=== PATIENT | male | born 1960 | race Hispanic/Latino ===

== ENCOUNTER 2019-06-08 15:19 | Inpatient (IN) | payer SELFPAY ==
[~2019-06-08] VITALS: Ht 170.2 cm; Wt 64.4 kg
[2019-06-08] MEDS ORDERED: MORPHINE SULFATE 4 MG/1ML SYG ONE ×2 (15:52→17:07)
[2019-06-08] MEDS ORDERED: ONDANSETRON HCL 4 MG/2 ML VIAL ONE (15:52)
[2019-06-08] MEDS ORDERED: SODIUM CHLORIDE 0.9% 1000ML 1,000 ML IV ONE ×2 (15:53→21:11)
[2019-06-08 16:30] LABS: BASOPHILS % (AUTO) 0.4 % (0.0-5.0); HEMATOCRIT 44.1 % (42-54); LYMPHOCYTES % (AUTO) 5.3 % (21.0-51.0); MONOCYTES % (AUTO) 3.9 % (3.0-13.0); NEUTROPHILS % (AUTO) 90.1 % (40.0-77.0); PLATELET COUNT (AUTO) 249 K/uL (130-400); RED BLOOD CELL COUNT(AUTO) 4.41 MIL/uL (4.50-6.20); RED CELL DISTRIBUTION WIDTH 12.8 % (11.0-15.5); WHITE BLOOD COUNT (AUTO) 7.7 K/uL (4.8-10.8)
[2019-06-08 16:51] LABS: ALBUMIN 4.6 g/dL (3.5-5.0); BILIRUBIN,TOTAL 0.6 mg/dL (0.2-1.0); MAGNESIUM 1.4 mg/dL (1.80-2.40); POTASSIUM 4.2 mmol/L (3.5-5.1); TOTAL PROTEIN, SERUM 8.7 g/dL (6.0-8.3)
[2019-06-08] MEDS ORDERED: ONDANSETRON HCL 4 MG/2 ML VIAL IV PRN (19:00)
[2019-06-08] MEDS ORDERED: LACTULOSE 20 GM/30 ML UDCUP PO PRN (19:00)
[2019-06-08] MEDS ORDERED: ACETAMINOPHEN 325 MG TAB PO PRN (19:00)
[2019-06-08] MEDS: FAMOTIDINE/PF 20 MG/2 ML VIAL IV SCH (21:00)
[2019-06-08] MEDS ORDERED: MAGNESIUM 2GM PREMIX 50ML 50 ML IV ONE (21:11)
[2019-06-08] MEDS ORDERED: HYDRALAZINE HCL 20 MG/ML VIAL ONE (21:11)
[2019-06-08] MEDS ORDERED: MORPHINE SULFATE 2 MG/ML 1ML SYG ONE (21:23)
[2019-06-08 23:11] VITALS: BP 150/108
[2019-06-08] MEDS ORDERED: TRAM50TA4 PO (23:28)
[2019-06-09] MEDS: HYDRALAZINE HCL 20 MG/ML VIAL IV PRN ×4 (00:01→21:08)
[2019-06-09] MEDS: MORPHINE SULFATE 2 MG/ML 1ML SYG IV PRN ×4 (00:01→13:57)
[2019-06-09 03:59] VITALS: BP 160/95
[2019-06-09 05:38] LABS: BASOPHILS % (AUTO) 0.3 % (0.0-5.0); LYMPHOCYTES % (AUTO) 14.3 % (21.0-51.0); MEAN CORPUSCULAR HEMOGLOBIN 33.9 pg (27.0-33.0); MEAN CORPUSCULAR HGB CONC 33.9 g/dL (32.0-36.0); MONOCYTES % (AUTO) 8.5 % (3.0-13.0); NEUTROPHILS % (AUTO) 76.4 % (40.0-77.0); PLATELET COUNT (AUTO) 245 K/uL (130-400); RED CELL DISTRIBUTION WIDTH 12.9 % (11.0-15.5); WHITE BLOOD COUNT (AUTO) 7.8 K/uL (4.8-10.8)
[2019-06-09 05:58] LABS: CREATININE 0.9 mg/dL (0.5-1.5); POTASSIUM 3.5 mmol/L (3.5-5.1)
[2019-06-09 07:00] VITALS: BP 163/103
[2019-06-09] MEDS: SODIUM CHLORIDE 0.9% 1000ML 1,000 ML IV SCH ×4 (07:26→18:49)
[2019-06-09] MEDS: FAMOTIDINE/PF 20 MG/2 ML VIAL IV SCH ×2 (08:57→19:33)
[2019-06-09] MEDS: ENOXAPARIN SODIUM 40 MG/0.4 ML SYRINGE SQ SCH (08:57)
[2019-06-09 11:00] VITALS: BP 153/94
[2019-06-09 16:00] VITALS: BP 165/101
[2019-06-09] MEDS: KETOROLAC TROMETHAMINE 30MG/ML IV PRN ×2 (16:39→23:08)
--- NOTE | 2019-06-09 16:54 | NUR ---
DCP CM met with pt discussed dc plans. Pt is independent prior to admission, lives at home with spouse. Denies any equipments/services. Feels safe to go back home, still works and drives, spouse able to assist with transportation and needs as necessary. DC plan to home once stable. CM to cont to follow up. Addendum: 06/09/19 at 1655 by MADI ZUNIGA LVN CM Amended: Links added.
--- NOTE | 2019-06-09 18:30 | NUR ---
fleet enema was done and patient tolerated the procedure well
[2019-06-09 19:15] VITALS: BP 182/107
[2019-06-09] MEDS: POTASSIUM CHLORIDE 10MEQ/100ML 100 ML IV PRN (19:33)
[2019-06-09] MEDS: LIDOCAINE HCL-MPF 1% 2ML VIAL IV PRN (19:33)
--- NOTE | 2019-06-09 22:30 | NUR ---
Dr. Craft saw patient. He ordered to discontinue the NG tube, start on Clear liquids 32 oz every hour and lactulose twice tonight and twice in the AM at 09:00 and at 11:00. He also ordered golytely, tap water enemas, abdominal x-ray 2 views, and colonoscopy for 06/11/19 at 13:30. removed NG tube at 23:00 with an output of 150 ml of light brown fluid. patient drinking water and apple juice and passing gas. tolerating liquids well.
[2019-06-09] MEDS: POTASSIUM CHLORIDE 10% ELIXIR 20 MEQ/15 ML UDCUP PO PRN (23:09)
[2019-06-10] VITALS (18 sets, daily range): BP systolic 114–204; BP diastolic 71–126
[2019-06-10] MEDS ORDERED: LACTULOSE 20 GM/30 ML UDCUP PO SCH
[2019-06-10] MEDS: HYDRALAZINE HCL 20 MG/ML VIAL IV PRN ×3 (04:48→20:06)
--- NOTE | 2019-06-10 08:30 | NUR ---
PATIENT TOLERATED CLEAR LIQUID DIET. LACTULOSE GIVEN PER DR KIRK URBINA. BOWEL SOUNDS NORMAL. PATIENT STATES HE IS BEEN HAVING BOWEL MOVEMENTS DURING THE NIGHT.
[2019-06-10] MEDS: FAMOTIDINE/PF 20 MG/2 ML VIAL IV SCH ×2 (08:31→20:04)
[2019-06-10] MEDS: MORPHINE SULFATE 2 MG/ML 1ML SYG IV PRN ×3 (08:31→18:22)
[2019-06-10] MEDS: ENOXAPARIN SODIUM 40 MG/0.4 ML SYRINGE SQ SCH (08:31)
[2019-06-10] MEDS ORDERED: LACTULOSE 20 GM/30 ML UDCUP PO PRN (09:00)
[2019-06-10] MEDS ORDERED: LACTULOSE 20 GM/30 ML UDCUP PO ONE (09:00)
[2019-06-10] MEDS: SODIUM CHLORIDE 0.9% 1000ML 1,000 ML IV SCH ×2 (10:58→23:39)
[2019-06-10] MEDS: LACTULOSE 20 GM/30 ML UDCUP PO SCH (11:04)
[2019-06-10] MEDS ORDERED: MAGNESIUM CITRATE 296 ML SOLUTION PO ONE (12:00)
--- NOTE | 2019-06-10 12:00 | NUR ---
PATIENT IS MORE DISTENDED THAN WHEN ASSESSED IN THE MORNING. HE HAD 2 MORE BOWEL MOVEMENTS, CLEAR LIGHT BROWN COLOR. WILL CONTINUE TO MONITOR.
[2019-06-10] MEDS ORDERED: PEG 3350/NA SULF,BICARB,CL/KCL 4000 ML SOLN PO ONE (15:00)
--- NOTE | 2019-06-10 15:00 | NUR ---
Dr Craft made aware of patient's current status of abdominal discomfort and refusing to drink the golytely because he feels to "filled up". abdomen more distended that before. Dr Chong Nicoleov aware.
[2019-06-10] MEDS ORDERED: PEG 3350/NA SULF,BICARB,CL/KCL 4000 ML SOLN PO SCH (15:45)
--- NOTE | 2019-06-10 17:30 | NUR ---
Dr Venancio herrera. waiting sales agent pest control service back.
--- NOTE | 2019-06-10 18:30 | NUR ---
NGT Johann AMARAL ordered NGT placement because of pt's abdominal distention. NGT 14 fr inserted. Placement verified with Jericho DEEN and Meena RN. 100 cc of output. Patient continues to complain of abdominal pain. Morphine given as per Emar.
[2019-06-10] MEDS ORDERED: OMEP20CA12 PO (20:12)
--- NOTE | 2019-06-10 20:30 | NUR ---
DR BRADLEY HERE TO EVALUATE PATIENT. ABDOMEN WITH ACTIVE BOWEL SOUNDS, BUT VERY DISTENDED, HARD/FIRM, NOT PASSING GAS, PAIN 8/10 DESPITE PAIN MEDS, X2 SMALL TEA-COLORED WATERY BM'S, NO FECAL MATTER PER DAY SHIFT NURSE. NG TUBE IN PLACE, BUT WITH MINIMAL WHITISH DRAINAGE. MD AND PATIENT DISCUSSED ONLY ABLE TO DRINK APPROXIMATELY 200CC OF GO-LYTELY, BUT UNABLE TO DRINK ANYMORE FLUID DUE TO ABDOMINAL PAIN/PRESSURE AND DISTENTION. MD RECOMMENDED AND PATIENT AGREED TAKING HIM FOR COLONOSCOPY AND DECOMPRESSION NOW. NOW PENDING TO GATHER GI TEAM.
[2019-06-10 21:06] LABS: CREATININE 0.8 mg/dL (0.5-1.5); POTASSIUM 3.2 mmol/L (3.5-5.1)
[2019-06-10] MEDS: KETOROLAC TROMETHAMINE 30MG/ML IV SCH (21:41)
--- NOTE | 2019-06-10 21:47 | NUR ---
PATIENT TRANSFERRED DOWN TO GI LAB FOR COLONOSCOPY WITH DECOMPRESSION. PATIENT AAOX3, NG TUBE INTACT, NO ACUTE DISTRESS NOTED. AT BEDSIDE.
[2019-06-10] MEDS ORDERED: PROPOFOL 10 MG/ML 20ML VIAL IV ONE ×4 (21:54→22:24)
[2019-06-10] MEDS ORDERED: LIDOCAINE HCL-MPF 2% 5ML VIAL ONE (21:54)
--- NOTE | 2019-06-10 23:25 | NUR ---
PATIENT ARRIVED FROM GI LAB WITH NG TUBE INTACT AND COLONIC DECOMPRESSIVE TUBE TAPED SECURELY IN PLACE WHICH WAS ATTACHED TO BEDSIDE DRAINAGE ORDERED. PATIENT AAOX3, WITH DECREASED ABDOMINAL DISTENTION, DENIES N/V OR DISCOMFORT AT PRESENT. PATIENT TO REMAIN NPO FOR NOW. WILL CONTINUE TO MONITOR.
[2019-06-11] VITALS (12 sets, daily range): BP systolic 135–175; BP diastolic 84–108
[2019-06-11] MEDS: POTASSIUM CHLORIDE 20 MEQ ERTAB PO SCH ×2 (00:03→02:16)
[2019-06-11] MEDS: KETOROLAC TROMETHAMINE 30MG/ML IV SCH ×2 (02:16→09:26)
[2019-06-11] MEDS: HYDRALAZINE HCL 20 MG/ML VIAL IV PRN ×2 (05:23→20:55)
--- NOTE | 2019-06-11 05:45 | NUR ---
PATIENT CONTINUES RECEIVING GO LYTELY 4OZ Q1HR ORDERED, MINIMAL NAUSEA REPORTED, WITH MINIMAL STOOL DRAINAGE NOTED TO BEDSIDE DRAINAGE VIA DECOMPRESSIVE RECTAL TUBE. ABDOMEN AGAIN VERY DISTENDED, HARD/FIRM WITH TYMPANIC TO ALL QUADRANTS, BUT WITH ACTIVE BOWEL SOUNDS. A MATTHEWK N.P. WAS CALLED AND NEW ORDER GIVEN FOR KUB THIS AM. WILL CONTINUE TO MONITOR.
[2019-06-11 05:50] LABS: BASOPHILS % (AUTO) 0.3 % (0.0-5.0); EOSINOPHILS % (AUTO) 0.2 % (0.0-8.0); HEMATOCRIT 37.7 % (42-54); LYMPHOCYTES % (AUTO) 13.6 % (21.0-51.0); MEAN CORPUSCULAR VOLUME 100.3 fL (79-99); MONOCYTES % (AUTO) 10.2 % (3.0-13.0); NEUTROPHILS % (AUTO) 75.2 % (40.0-77.0); PLATELET COUNT (AUTO) 202 K/uL (130-400); RED BLOOD CELL COUNT(AUTO) 3.76 MIL/uL (4.50-6.20); RED CELL DISTRIBUTION WIDTH 13.1 % (11.0-15.5); WHITE BLOOD COUNT (AUTO) 6.3 K/uL (4.8-10.8)
[2019-06-11 06:09] LABS: ALBUMIN 3.3 g/dL (3.5-5.0); BILIRUBIN,TOTAL 0.6 mg/dL (0.2-1.0); CREATININE 0.8 mg/dL (0.5-1.5); POTASSIUM 3.5 mmol/L (3.5-5.1); TOTAL PROTEIN, SERUM 6.7 g/dL (6.0-8.3)
--- NOTE | 2019-06-11 06:15 | NUR ---
PATIENT ASSISTED TO TOILET, PASSED GAS AND HAD LARGE WATERY BM. WALKED AROUND NURSE'S STATION AND ENCOURAGED TO KEEP WALKING THROUGHOUT SHIFT. WILL CONTINUE TO MONITOR.
[2019-06-11] MEDS: FAMOTIDINE/PF 20 MG/2 ML VIAL IV SCH ×2 (09:26→20:54)
[2019-06-11] MEDS: ENOXAPARIN SODIUM 40 MG/0.4 ML SYRINGE SQ SCH (09:26)
[2019-06-11] MEDS: SODIUM CHLORIDE 0.9% 1000ML 1,000 ML IV SCH (09:26)
[2019-06-11] MEDS: LACTULOSE 20 GM/30 ML UDCUP PO SCH (10:41)
[2019-06-11] MEDS ORDERED: METHYLPREDNISOLONE SOD SUCC 125MG/2ML VIAL IVP SCH (15:45)
[2019-06-11] MEDS: POTASSIUM CHLORIDE 10MEQ/100ML 100 ML IV PRN (16:48)
--- NOTE | 2019-06-11 20:00 | NUR ---
PATIENT REFUSES DR. BRADLEY'S RECOMMENDATION TO CONTINUE AND FINISH GO FABIOLALY, STATES IT MAKE HIS ABDOMEN VERY PAINFUL FROM DISTENTION. ALSO REFUSES TO HAVE NG TUBE CONNECTED TO LIS HE WANTS TO WALK MUCH POSSIBLE. WILL CONTINUE TO MONITOR. Addendum: 06/12/19 at 0332 by АЛЕКСАНДР LY RN RN Amended: Links added.
[2019-06-11] MEDS: METHYLPREDNISOLONE SOD SUCC 125MG/2ML VIAL IVP SCH (21:38)
[2019-06-12] VITALS: BP 136/100
[2019-06-12 04:00] VITALS: BP 140/93
[2019-06-12] MEDS: METHYLPREDNISOLONE SOD SUCC 125MG/2ML VIAL IVP SCH ×4 (04:04→21:59)
[2019-06-12] MEDS: SODIUM CHLORIDE 0.9% 1000ML 1,000 ML IV SCH ×2 (04:05→11:48)
[2019-06-12 05:59] LABS: HEMATOCRIT 35.3 % (42-54); LYMPHOCYTES % (AUTO) 7.4 % (21.0-51.0); MEAN CORPUSCULAR HEMOGLOBIN 34.5 pg (27.0-33.0); MEAN CORPUSCULAR HGB CONC 34.6 g/dL (32.0-36.0); MEAN CORPUSCULAR VOLUME 99.7 fL (79-99); MONOCYTES % (AUTO) 4.2 % (3.0-13.0); NEUTROPHILS % (AUTO) 87.8 % (40.0-77.0); PLATELET COUNT (AUTO) 204 K/uL (130-400); RED BLOOD CELL COUNT(AUTO) 3.54 MIL/uL (4.50-6.20); RED CELL DISTRIBUTION WIDTH 12.8 % (11.0-15.5); WHITE BLOOD COUNT (AUTO) 4.8 K/uL (4.8-10.8)
[2019-06-12] MEDS ORDERED: MAGNESIUM CITRATE 296 ML SOLUTION NG ONE (06:00)
[2019-06-12 06:20] LABS: ALBUMIN 3.3 g/dL (3.5-5.0); BILIRUBIN,TOTAL 0.5 mg/dL (0.2-1.0); CREATININE 0.7 mg/dL (0.5-1.5); POTASSIUM 3.3 mmol/L (3.5-5.1); TOTAL PROTEIN, SERUM 6.7 g/dL (6.0-8.3)
[2019-06-12] MEDS: POTASSIUM CHLORIDE 20 MEQ ERTAB PO PRN ×2 (06:58→12:50)
[2019-06-12 08:00] VITALS: BP 165/111
[2019-06-12] MEDS: FAMOTIDINE/PF 20 MG/2 ML VIAL IV SCH ×2 (08:26→21:02)
[2019-06-12] MEDS: ENOXAPARIN SODIUM 40 MG/0.4 ML SYRINGE SQ SCH (08:29)
[2019-06-12] MEDS: MAGNESIUM 2GM PREMIX 50ML 50 ML IV PRN (08:30)
[2019-06-12] MEDS: HYDRALAZINE HCL 20 MG/ML VIAL IV PRN (08:31)
--- NOTE | 2019-06-12 08:39 | NUR ---
PATIENT REFUSED LOVENOX AND SOLU-MEDROL AT THIS TIME. STATES HE GETS TACHYCARDIA WITH THE STEROID.
--- NOTE | 2019-06-12 08:41 | NUR ---
AMBULATE ENCOURAGED PATIENT TO AMBULATE TO HELP RELIEVE DISTENTION. STATED HE HAD 1 BOWEL MOVEMENT 20 MINUTES AGO. PAIN LEVEL 2/10. OVERALL FEELS BETTER THAN YESTERDAY. WILL CONTINUE TO MONITOR.
[2019-06-12] MEDS: LACTULOSE 20 GM/30 ML UDCUP PO SCH (11:00)
[2019-06-12 11:55] VITALS: BP 147/114
--- NOTE | 2019-06-12 12:57 | NUR ---
NGT PATIENT STATED HE SNEEZED AND "ACCIDENTALY" PULLED OUT THE NGT. DR YAEL PAGAN.
[2019-06-12 16:00] VITALS: BP 147/91
[2019-06-12] MEDS: POLYETHYLENE GLYCOL 3350 17 GM POWD.PACK PO SCH ×5 (16:14→23:04)
--- NOTE | 2019-06-12 17:00 | NUR ---
Miralax Encouraged patient to continue to drink Miralax as ordered by Dr Craft. Patient states he still trying to finish the first of 10 doses of miralax. Positive bowel sounds. Encouraged patient to ambulate.
[2019-06-12 20:00] VITALS: BP 161/107
[2019-06-13] VITALS: BP 175/110
[2019-06-13] MEDS: POLYETHYLENE GLYCOL 3350 17 GM POWD.PACK PO SCH (00:01)
[2019-06-13] MEDS: HYDRALAZINE HCL 20 MG/ML VIAL IV PRN (00:02)
--- NOTE | 2019-06-13 00:15 | NUR ---
MIRALAX-PATIENT HAS HAD 6 OF 10 MIRALAX DOSES, BUT STATES IS NOT ABLE TO DRINK ANYMORE. ABDOMEN DISTENDED, REPORTS NOT PASSING GAS, AND HAS HAD SMALL AMOUNTS OF WATERY STOOL WITHOUT FECAL MATTER NOTED PER PATIENT.STATES HE WILL CALL WHEN HE FEELS HE CAN CONTINUE DRINKING THE MIRALAX. PATIENT HAS BEEN SEEN WALKING AROUND NURSE'S STATION MULTIPLE TIMES SINCE CHANGE OF SHIFT, WILL CONTINUE TO MONITOR.
--- NOTE | 2019-06-13 02:05 | NUR ---
PATIENT WALKING AROUND NURSE'S STATION REPORTS ABDOMINAL PAIN 10/. WALKED BACK TO ROOM, NOTED ABDOMEN NOW MORE DISTENDED, HARD/FIRM, COMPARED TO BEGINNING OF SHIFT. TYMPANIC ABDOMINAL SOUNDS AND ACTIVE BOWEL SOUNDS, REQUESTING PAIN MEDICATION AND AGREES TO NG TUBE RE-INSERTION IF NEEDED/ORDERED. A ELIANA Curtis WAS CALLED TO UPDATE, ORDERS GIVEN FOR STAT KUB, NPO, RE-INSERT NG TUBE & CONNECT TO LIS, TORADOL 15MG IV X1 ONLY. ORDERS CARRIED FORWARD. WILL CONTINUE TO MONITOR.
[2019-06-13] MEDS: KETOROLAC TROMETHAMINE 15MG/ML IV SCH ×2 (02:15→22:28)
--- NOTE | 2019-06-13 02:30 | NUR ---
14FR NG TUBE INSERTED VIA LEFT NARE, CHECKED FOR PLACEMENT, MINIMAL WHITISH DRAINAGE. RADIOLOGY HERE FOR KUB. WILL CONTINUE TO MONITOR.
[2019-06-13] MEDS ORDERED: KETOROLAC TROMETHAMINE 15MG/ML ONE (02:34)
[2019-06-13] MEDS: METHYLPREDNISOLONE SOD SUCC 125MG/2ML VIAL IVP SCH ×4 (03:55→22:15)
[2019-06-13 04:00] VITALS: BP 151/101
[2019-06-13 05:55] LABS: BASOPHILS % (AUTO) 0.1 % (0.0-5.0); HEMATOCRIT 39.8 % (42-54); LYMPHOCYTES % (AUTO) 4.6 % (21.0-51.0); MEAN CORPUSCULAR HEMOGLOBIN 33.7 pg (27.0-33.0); MEAN CORPUSCULAR HGB CONC 33.9 g/dL (32.0-36.0); MEAN CORPUSCULAR VOLUME 99.3 fL (79-99); MONOCYTES % (AUTO) 5.7 % (3.0-13.0); NEUTROPHILS % (AUTO) 87.3 % (40.0-77.0); PLATELET COUNT (AUTO) 260 K/uL (130-400); RED BLOOD CELL COUNT(AUTO) 4.01 MIL/uL (4.50-6.20); RED CELL DISTRIBUTION WIDTH 12.8 % (11.0-15.5); WHITE BLOOD COUNT (AUTO) 8.6 K/uL (4.8-10.8)
[2019-06-13 06:20] LABS: ALBUMIN 3.4 g/dL (3.5-5.0); BILIRUBIN,TOTAL 0.5 mg/dL (0.2-1.0); CREATININE 0.9 mg/dL (0.5-1.5); POTASSIUM 3.3 mmol/L (3.5-5.1); TOTAL PROTEIN, SERUM 6.9 g/dL (6.0-8.3)
[2019-06-13] MEDS ORDERED: KETOROLAC TROMETHAMINE 15MG/ML IV SCH (07:45)
[2019-06-13] MEDS: SODIUM CHLORIDE 0.9% 1000ML 1,000 ML IV SCH (07:54)
[2019-06-13 07:56] VITALS: BP 159/93
[2019-06-13] MEDS: FAMOTIDINE/PF 20 MG/2 ML VIAL IV SCH ×2 (08:49→22:15)
[2019-06-13] MEDS: PREDNISONE 20 MG TABLET PO SCH (08:49)
[2019-06-13] MEDS: ENOXAPARIN SODIUM 40 MG/0.4 ML SYRINGE SQ SCH (08:50)
[2019-06-13] MEDS: LACTULOSE 20 GM/30 ML UDCUP PO SCH (11:00)
[2019-06-13 11:23] VITALS: BP 159/96
[2019-06-13] MEDS: POTASSIUM CHLORIDE 20MEQ/100ML 100 ML IV SCH ×2 (13:11→15:55)
[2019-06-13] MEDS: LIDOCAINE HCL-MPF 1% 2ML VIAL IV PRN ×2 (13:11→15:54)
[2019-06-13] MEDS: KETOROLAC TROMETHAMINE 30MG/ML IV PRN (13:30)
[2019-06-13] MEDS: DEXTROSE 5%-LACTATED RINGERS 1,000 ML IV SCH (14:36)
[2019-06-13 16:00] VITALS: BP 145/105
[2019-06-13 19:25] VITALS: BP 152/99
[2019-06-14] VITALS (8 sets, daily range): BP systolic 144–185; BP diastolic 52–116
[2019-06-14] MEDS: DEXTROSE 5%-LACTATED RINGERS 1,000 ML IV SCH ×2 (03:21→18:44)
[2019-06-14] MEDS: HYDRALAZINE HCL 20 MG/ML VIAL IV PRN ×2 (03:26→20:24)
--- NOTE | 2019-06-14 03:27 | NUR ---
PRN med" prn apresoline given for bp 176/100
[2019-06-14] MEDS: METHYLPREDNISOLONE SOD SUCC 125MG/2ML VIAL IVP SCH ×4 (03:28→23:13)
[2019-06-14 06:06] LABS: HEMATOCRIT 36.4 % (42-54); MEAN CORPUSCULAR HEMOGLOBIN 34.4 pg (27.0-33.0); MEAN CORPUSCULAR HGB CONC 34.6 g/dL (32.0-36.0); MEAN CORPUSCULAR VOLUME 99.5 fL (79-99); PLATELET COUNT (AUTO) 247 K/uL (130-400); RED BLOOD CELL COUNT(AUTO) 3.66 MIL/uL (4.50-6.20); RED CELL DISTRIBUTION WIDTH 12.6 % (11.0-15.5); WHITE BLOOD COUNT (AUTO) 9.9 K/uL (4.8-10.8)
[2019-06-14 06:12] LABS: CREATININE 0.8 mg/dL (0.5-1.5); MAGNESIUM 2.4 mg/dL (1.80-2.40); POTASSIUM 3.7 mmol/L (3.5-5.1)
[2019-06-14 06:40] LABS: BAND NEUTROPHILS % (MANUAL) 1 % (0-2); LYMPHOCYTES % (MANUAL) 6 % (22-44); MAN.DIFF COMMENT-IMPRESSION MANUAL DIFFERENTIAL; MONOCYTES % (MANUAL) 6 % (2-9); PLATELET MORPHOLOGY COMMENT ADEQUATE; REACTIVE LYMPHOCYTES 1 % (0-0); SEGMENTED NEUTROPHILS % 86 % (40-70)
[2019-06-14] MEDS: LACTULOSE 20 GM/30 ML UDCUP PO SCH (08:07)
[2019-06-14] MEDS: FAMOTIDINE/PF 20 MG/2 ML VIAL IV SCH ×2 (10:55→20:21)
[2019-06-14] MEDS: PREDNISONE 20 MG TABLET PO SCH (10:58)
[2019-06-14] MEDS: ENOXAPARIN SODIUM 40 MG/0.4 ML SYRINGE SQ SCH (10:59)
[2019-06-14] MEDS: KETOROLAC TROMETHAMINE 30MG/ML IV PRN (11:03)
--- NOTE | 2019-06-14 12:23 | NUR ---
RD NOTIFICATION S/P Colonoscopy- Small Bowel Obstruction. Diet: NPO x 6days. LBM: 06/13, diarrhea noted. Labs reviewed. Meds reviewed. RD recommendations/ Interventions: Advance diet as tolerated when medically feasible Monitor changes in daily weight If unable to advance diet, recommend to start TPN via PICC using Clinimix 11/10 at 83ml/hr. Increase rate as tolerated. Monitor CMP, Mg, Phos. Recommend B12 + Folate blood draw for need of possible supplementation RD will continue to monitor and follow up, thank you. Addendum: 06/14/19 at [address] Amended: Links added.
[2019-06-14] MEDS ORDERED: POTASSIUM CHLORIDE 10MEQ/100ML 10 MEQ/100 ML ML IV SCH (12:45)
[2019-06-14] MEDS: POTASSIUM CHLORIDE 20MEQ/100ML 100 ML IV SCH (13:54)
[2019-06-14] MEDS: LIDOCAINE HCL-MPF 1% 2ML VIAL IV PRN (13:55)
[2019-06-14] MEDS: KETOROLAC TROMETHAMINE 15MG/ML IV SCH (23:22)
[2019-06-15 03:25] VITALS: BP 145/90
[2019-06-15] MEDS: METHYLPREDNISOLONE SOD SUCC 125MG/2ML VIAL IVP SCH (05:09)
[2019-06-15] MEDS: DEXTROSE 5%-LACTATED RINGERS 1,000 ML IV SCH ×2 (05:09→19:05)
[2019-06-15 05:49] LABS: HEMATOCRIT 36.7 % (42-54); MEAN CORPUSCULAR HEMOGLOBIN 33.9 pg (27.0-33.0); MEAN CORPUSCULAR HGB CONC 33.8 g/dL (32.0-36.0); MEAN CORPUSCULAR VOLUME 100.3 fL (79-99); PLATELET COUNT (AUTO) 248 K/uL (130-400); RED BLOOD CELL COUNT(AUTO) 3.66 MIL/uL (4.50-6.20); RED CELL DISTRIBUTION WIDTH 12.4 % (11.0-15.5); WHITE BLOOD COUNT (AUTO) 7.3 K/uL (4.8-10.8)
[2019-06-15 06:00] LABS: CREATININE 0.9 mg/dL (0.5-1.5); MAGNESIUM 2.2 mg/dL (1.80-2.40); POTASSIUM 3.9 mmol/L (3.5-5.1)
[2019-06-15 07:58] LABS: LYMPHOCYTES % (MANUAL) 8 % (22-44); MAN.DIFF COMMENT-IMPRESSION MANUAL DIFFERENTIAL; MONOCYTES % (MANUAL) 8 % (2-9); PLATELET MORPHOLOGY COMMENT ADEQUATE; SEGMENTED NEUTROPHILS % 84 % (40-70)
[2019-06-15 08:00] VITALS: BP 159/86
[2019-06-15] MEDS ORDERED: PREDNISONE 10 MG TABLET PO SCH (09:00)
[2019-06-15] MEDS: ENOXAPARIN SODIUM 40 MG/0.4 ML SYRINGE SQ SCH (09:00)
[2019-06-15] MEDS ORDERED: MAGNESIUM CITRATE 296 ML SOLUTION PO ONE (09:00)
[2019-06-15] MEDS: FAMOTIDINE/PF 20 MG/2 ML VIAL IV SCH ×2 (09:08→20:18)
[2019-06-15] MEDS: PREDNISONE 20 MG TABLET PO SCH (09:09)
[2019-06-15] MEDS: LACTULOSE 20 GM/30 ML UDCUP PO SCH (11:00)
[2019-06-15 12:00] VITALS: BP 143/93
[2019-06-15 16:00] VITALS: BP 151/104
[2019-06-15 19:00] VITALS: BP 150/94
[2019-06-15 23:00] VITALS: BP 165/108
[2019-06-15] MEDS: HYDRALAZINE HCL 20 MG/ML VIAL IV PRN (23:16)
[2019-06-16] VITALS (7 sets, daily range): BP systolic 121–157; BP diastolic 60–101
[2019-06-16] MEDS: KETOROLAC TROMETHAMINE 15MG/ML IV SCH (02:15)
[2019-06-16] MEDS ORDERED: KETOROLAC TROMETHAMINE 15MG/ML IV SCH (04:30)
--- NOTE | 2019-06-16 04:46 | NUR ---
SITE LEAD Yohannes Matamoros was notified regarding patient complaining of abdominal cramps. Bowel sounds jordon Upper quadrants hyperactive and lower quadrants hypoactive. Toradol 15 mg IV was ordered and was given. Will re assess patient.
[2019-06-16 05:38] LABS: CREATININE 0.9 mg/dL (0.5-1.5); MAGNESIUM 2.1 mg/dL (1.80-2.40); POTASSIUM 3.4 mmol/L (3.5-5.1)
--- NOTE | 2019-06-16 05:45 | NUR ---
Patient was reassessed and stated that he feels much better and the cramps are gone. Patient is comfortable in bed. Will monitor closely.
[2019-06-16] MEDS: DEXTROSE 5%-LACTATED RINGERS 1,000 ML IV SCH ×2 (08:25→21:45)
[2019-06-16] MEDS: ENOXAPARIN SODIUM 40 MG/0.4 ML SYRINGE SQ SCH (09:00)
--- NOTE | 2019-06-16 09:06 | NUR ---
RD FOLLOW UP Gastroenterology and general surgery consulted. Pt underwent colonoscopy and currently awaiting Biopsy results. Pt tolerating clear liquids well, had a BM and abdominal pain is resolving, as per MD. RD recommends to continue current diet Advance diet as tolerated if medically feasible to full liquids Monitor tolerance to PO intake and BM RD will continue to monitor, thank you. Addendum: 06/16/19 at [address] Amended: Links added.
[2019-06-16] MEDS: PREDNISONE 20 MG TABLET PO SCH (09:09)
[2019-06-16] MEDS: FAMOTIDINE/PF 20 MG/2 ML VIAL IV SCH ×2 (09:09→20:46)
[2019-06-16] MEDS: POTASSIUM CHLORIDE 20 MEQ ERTAB PO PRN (09:10)
[2019-06-16] MEDS: LACTULOSE 20 GM/30 ML UDCUP PO SCH (11:00)
[2019-06-16] MEDS: KETOROLAC TROMETHAMINE 15MG/ML IV PRN ×2 (14:34→20:52)
--- NOTE | 2019-06-16 18:04 | NUR ---
BIOPSY RESULTS CHIQUITA AMARAL AWARE OF BIOPSY RESULTS. STATES DR BRADLEY NEEDS TO BE THE ONE WHO GIVES THE RESULTS TO THE PATIENT. I WILL INFORM DR BRADLEY OF THE RESULTS.
--- NOTE | 2019-06-16 18:46 | NUR ---
DR BRADLEY AWARE OF BIOPSY RESULTS. NEW ORDERS RECEIVED AND CARRIED OUT. DR BRADLEY STATES HE WILL BE HERE LATER ON TODAY TO GIVE THE RESULTS TO PATIENT.
[2019-06-16] MEDS ORDERED: POTASSIUM CHLORIDE 20 MEQ ERTAB PO SCH (19:45)
[2019-06-16] MEDS: HYDRALAZINE HCL 20 MG/ML VIAL IV PRN (23:59)
[2019-06-17 03:00] VITALS: BP 139/79
[2019-06-17] MEDS: KETOROLAC TROMETHAMINE 15MG/ML IV PRN ×4 (04:07→23:30)
[2019-06-17 05:45] LABS: CREATININE 0.9 mg/dL (0.5-1.5); MAGNESIUM 2.1 mg/dL (1.80-2.40); POTASSIUM 4.1 mmol/L (3.5-5.1)
[2019-06-17 07:00] VITALS: BP 146/87
[2019-06-17] MEDS: FAMOTIDINE/PF 20 MG/2 ML VIAL IV SCH ×2 (09:56→20:47)
[2019-06-17] MEDS: PREDNISONE 20 MG TABLET PO SCH (09:56)
[2019-06-17] MEDS: LACTULOSE 20 GM/30 ML UDCUP PO SCH (09:56)
[2019-06-17] MEDS: ENOXAPARIN SODIUM 40 MG/0.4 ML SYRINGE SQ SCH (09:57)
[2019-06-17 11:00] VITALS: BP 144/85
[2019-06-17] MEDS: DEXTROSE 5%-LACTATED RINGERS 1,000 ML IV SCH (11:05)
[2019-06-17 15:47] VITALS: BP 139/95
--- NOTE | 2019-06-17 18:39 | NUR ---
PAGED THE HOSPITALIST DESIGN SUPERVISOR FOR TONIGHT. THE PATIENT COMPLAINS OF SEVERE ABDOMINAL PAIN. WILL WAIT FOR THE CALL BACK.
[2019-06-17] MEDS ORDERED: ACETAMINOPHEN-CODEINE 300/30MG TAB PO PRN (19:30)
[2019-06-17 19:32] VITALS: BP 180/93
--- NOTE | 2019-06-17 19:50 | NUR ---
PM Assessment Received pt with spouse at the bedside, NS at 100ccx/hr infusing well, routine assessment done, pt noted abdomen distended but (+)bowel sounds, pt claimed per PA of Dr. Castillo inform him he can be discharge, spouse was disappointed as pt remain not doing well. Pt made aware as per report Dr. Craft stated no need for NGT as pt problem is along the sigmoid section, & pt admitted passing gas with last BM on 06/16/2019. Pt aware on clear liquid diet & stated did ate a little for today. Pt advise to only have some ice chips for now until his bowel function will return & that he needs to be not just be lying bed, be sited, & ambulate. Per pt claimed he feels much better if he stays in one position, again re explained complication of inactivity that cold lead to more problem. Pt made aware that he has Tylenol w/ codeine made aware I will need to re clarify this order so with his diet. X- ray of the abdomen today = Severely dilated large and small bowel loops, small bowel distention appears increased compared to previous exam. SCRAP METAL BURNER Yohannes to be page to discuss current issue.
[2019-06-17] MEDS ORDERED: ACETAMINOPHEN-CODEINE 300/30MG TAB PO ONE (20:10)
--- NOTE | 2019-06-17 20:45 | NUR ---
Re: Abdominal Distention PRIZE COORDINATOR Yohannes came, discuss the case, then visited pt & assess, advise pt importance of increase activity level, avoid just lying in bed, claimed (+) BM/flatus. Pt did agreed to sit at the edge of the bed with a goal of trying to start ambulation. Pt insisted for his Tylenol with codeine, to be medicated as claimed need to have it due to abdominal discomfort scale 10/10. Pt agreed will try to ambulate later after his next dose of Tramadol.
[2019-06-17 23:35] VITALS: BP 144/86
--- NOTE | 2019-06-17 23:45 | NUR ---
Re: Ambulation Checked pt post medication of Tramadol to see if he will agree to even ambulate within the room but per pt stated he knows his body & will increase his activity when he will be ready for it. I then inform the pt that physical therapist will start working with him tomorrow to assist him to ambulate.
[2019-06-18 04:01] VITALS: BP 143/85
[2019-06-18] MEDS: DEXTROSE 5%-LACTATED RINGERS 1,000 ML IV SCH ×3 (04:31→21:48)
[2019-06-18 05:49] LABS: CREATININE 0.9 mg/dL (0.5-1.5); MAGNESIUM 2.1 mg/dL (1.80-2.40); POTASSIUM 3.4 mmol/L (3.5-5.1)
[2019-06-18 06:30] VITALS: BP 136/90
[2019-06-18] MEDS: LIDOCAINE HCL-MPF 1% 2ML VIAL IV PRN (06:49)
[2019-06-18] MEDS: POTASSIUM CHLORIDE 20MEQ/100ML 100 ML IV SCH (06:49)
[2019-06-18 07:00] VITALS: BP 160/87
--- NOTE | 2019-06-18 08:01 | NUR ---
DECOMPRESSION NG TUBE WAS PLACED, 400 ML 0F BILE OUTPUT, PATIENT TOLERATED THE PROCEDURE WELL AND WILL GIVE MORPHINE TO HELP WITH THE PAIN.
[2019-06-18] MEDS: FAMOTIDINE/PF 20 MG/2 ML VIAL IV SCH ×2 (08:36→21:48)
[2019-06-18] MEDS: MORPHINE SULFATE 4 MG/1ML SYG IV PRN ×2 (08:36→21:48)
[2019-06-18] MEDS: PREDNISONE 20 MG TABLET PO SCH (09:00)
[2019-06-18] MEDS: ENOXAPARIN SODIUM 40 MG/0.4 ML SYRINGE SQ SCH (09:00)
[2019-06-18 09:37] LABS: HEMATOCRIT 41.7 % (42-54); MEAN CORPUSCULAR HEMOGLOBIN 33.6 pg (27.0-33.0); MEAN CORPUSCULAR HGB CONC 33.1 g/dL (32.0-36.0); MEAN CORPUSCULAR VOLUME 101.5 fL (79-99); PLATELET COUNT (AUTO) 323 K/uL (130-400); RED BLOOD CELL COUNT(AUTO) 4.11 MIL/uL (4.50-6.20); RED CELL DISTRIBUTION WIDTH 12.8 % (11.0-15.5)
[2019-06-18 09:41] LABS: WHITE BLOOD COUNT (AUTO) 1.5 K/uL (4.8-10.8)
--- NOTE | 2019-06-18 09:42 | NUR ---
REPORT TO DR SUAREZ THE WBC OF 1.5
[2019-06-18] MEDS ORDERED: TBO-FILGRASTIM 480 MCG/0.8 ML ML SQ SCH (10:48)
[2019-06-18 11:00] VITALS: BP 127/75
[2019-06-18] MEDS: KETOROLAC TROMETHAMINE 15MG/ML IV PRN ×2 (12:44→17:46)
[2019-06-18 16:00] VITALS: BP 119/70
--- NOTE | 2019-06-18 17:56 | NUR ---
DR. SUAREZ WAS NOTIFIED THAT THE PATIENT ONLY HAD A URINE OUTPUT OF 100 ML. HE ORDERED KUB TO COMPARISON TO THE LATEST KUB
[2019-06-18 19:15] VITALS: BP 120/83
--- NOTE | 2019-06-18 23:31 | NUR ---
BLADDER SCAN BLADDER SCAN DONE AT THIS TIME, PER MD ORDERS. BLADDER SCAN RESULT OF 16 ML. PT HAS VOIDED, VIA URINAL, 100 AT 1999 (06/18/19). PT DENIES COMPLAINS OF PAIN OR DISCOMFORT. PT IN BED CALM AND COOPERATIVE.
[2019-06-19] VITALS (59 sets, daily range): BP systolic 87–202; BP diastolic 59–97
[2019-06-19] MEDS: KETOROLAC TROMETHAMINE 15MG/ML IV PRN ×2 (01:26→08:18)
[2019-06-19 04:54] LABS: BASOPHILS % (AUTO) 0.7 % (0.0-5.0); EOSINOPHILS % (AUTO) 0.1 % (0.0-8.0); LYMPHOCYTES % (AUTO) 3.6 % (21.0-51.0); MEAN CORPUSCULAR HEMOGLOBIN 32.9 pg (27.0-33.0); MEAN CORPUSCULAR HGB CONC 32.7 g/dL (32.0-36.0); MEAN CORPUSCULAR VOLUME 100.5 fL (79-99); MONOCYTES % (AUTO) 2.5 % (3.0-13.0); NEUTROPHILS % (AUTO) 92.2 % (40.0-77.0); PLATELET COUNT (AUTO) 270 K/uL (130-400); RED BLOOD CELL COUNT(AUTO) 3.68 MIL/uL (4.50-6.20); RED CELL DISTRIBUTION WIDTH 12.7 % (11.0-15.5); WHITE BLOOD COUNT (AUTO) 12.8 K/uL (4.8-10.8)
[2019-06-19 05:15] LABS: ALBUMIN 1.7 g/dL (3.5-5.0); BILIRUBIN,TOTAL 0.5 mg/dL (0.2-1.0); CREATININE 1.4 mg/dL (0.5-1.5); MAGNESIUM 1.9 mg/dL (1.80-2.40); POTASSIUM 3.7 mmol/L (3.5-5.1); TOTAL PROTEIN, SERUM 5.2 g/dL (6.0-8.3)
[2019-06-19] MEDS: MORPHINE SULFATE 4 MG/1ML SYG IV PRN (05:46)
[2019-06-19] MEDS: DEXTROSE 5%-LACTATED RINGERS 1,000 ML IV SCH ×2 (05:51→12:42)
[2019-06-19 06:06] LABS: INR 0.98 (0.85-1.15); PARTIAL THROMBOPLASTIN TIME 37.6 SEC (26.3-35.5); PROTHROMBIN TIME 10.3 SEC (9.6-11.6)
[2019-06-19] MEDS: FAMOTIDINE/PF 20 MG/2 ML VIAL IV SCH ×2 (08:18→21:34)
[2019-06-19] MEDS ORDERED: SUCCINYLCHOLINE 200MG/10ML SYR ONE (08:44)
[2019-06-19] MEDS ORDERED: LIDOCAINE PF 2% 5ML ABBOJECT ONE (08:44)
[2019-06-19] MEDS ORDERED: DEXAMETHASONE SOD PHOSPHATE 10MG/ML 1ML VIAL ONE (08:44)
[2019-06-19] MEDS ORDERED: PROPOFOL 10 MG/ML 20ML VIAL IV ONE (08:45)
[2019-06-19] MEDS ORDERED: GLYCOPYRROLATE 1 MG/5 ML SYRINGE ONE (08:45)
[2019-06-19] MEDS ORDERED: ONDANSETRON HCL 4 MG/2 ML VIAL ONE (08:45)
[2019-06-19] MEDS ORDERED: FENTANYL CITRATE PF 50 MCG/1 ML 2ML VIAL ONE ×3 (08:46→10:26)
[2019-06-19] MEDS ORDERED: ROCURONIUM 10MG/1ML SYR 10 MG/ML ML ONE ×2 (08:46→10:01)
[2019-06-19] MEDS ORDERED: MIDAZOLAM HCL 1 MG/ML 2ML VIAL ONE (08:46)
[2019-06-19] MEDS ORDERED: NEOSTIGMINE 5MG/5ML SYR IV ONE (08:46)
[2019-06-19] MEDS ORDERED: CEFAZOLIN SODIUM 1 GM VIAL ONE (08:53)
[2019-06-19] MEDS: ENOXAPARIN SODIUM 40 MG/0.4 ML SYRINGE SQ SCH (09:00)
[2019-06-19] MEDS ORDERED: ALBUMIN (HUMAN) 5% 500 ML IV ONE (09:39)
[2019-06-19] MEDS ORDERED: PROPOFOL 1000 MG/100 ML 100 ML IV ONE ×2 (10:30→13:58)
[2019-06-19] MEDS ORDERED: MEPERIDINE-PF 25 MG/ML SYG ONE (11:20)
[2019-06-19] MEDS ORDERED: LABETALOL HCL 5 MG/ML 20ML VIAL IV ONE (11:21)
[2019-06-19] MEDS: PREDNISONE 20 MG TABLET PO SCH (13:51)
[2019-06-19] MEDS: ZOSYN 3.375GM+NS 50ML 50 ML IV SCH ×2 (15:08→21:33)
--- NOTE | 2019-06-19 15:48 | NUR ---
DR SUAREZ IN TO SEE PATIENT, PATIENT'S ASLEEP AT THE BEDSIDE. INFORMED THAT THE PATIENT'S WOULD LIKE A SECOND OPINION FROM DR ZAMUDIO. DR SUAREZ STATED TO WAIT UNTIL TOMORROW AND HE WILL DISCUSS IT WITH HER. N NEW ORDERS AT THIS TIME.
[2019-06-19] MEDS ORDERED: POTASSIUM CHLORIDE 20MEQ/100ML 100 ML IV PRN (16:30)
[2019-06-19] MEDS ORDERED: LIDOCAINE HCL-MPF 1% 2ML VIAL IV PRN (16:30)
[2019-06-19] MEDS ORDERED: PHARMACY COMMUNICATION MISC SCH (16:30)
[2019-06-19] MEDS: ARTIFICAL TEARS SOL 15 ML OU SCH ×2 (16:30→23:44)
[2019-06-19] MEDS: LACTATED RINGERS 1000ML 1,000 ML IV SCH ×2 (16:36→23:10)
[2019-06-19] MEDS ORDERED: SODIUM CHLORIDE 0.9% 1000ML 2,000 ML IV ONE ×2 (16:58→21:19)
[2019-06-19] MEDS ORDERED: [UNRECOGNIZED DRUG - OTHER] IV SCH (17:00)
[2019-06-19] MEDS ORDERED: SODIUM CHLORIDE 0.9% IV SCH (17:00)
[2019-06-19 17:14] LABS: ABG BASE EXCESS 0.1 mmol/L (-2.0-3.0); ABG HCO3 22.8 mmol/L (21.0-28.0); ABG OXYGEN SATURATION 99.2 % (95.0-99.0); ABG PCO2 32 mmHg (35-48)
[2019-06-19] MEDS ORDERED: COMPOUND IV REFRIGERATED 1 EACH IVSOLN MISC PRN (17:45)
[2019-06-19] MEDS ORDERED: VANCOMYCIN PROTOCOL PER PHARMACY IV SCH (17:45)
[2019-06-19] MEDS: FENTANYL 2500MCG+NS 250ML 250 ML IV PRN (17:48)
[2019-06-19] MEDS: MIDAZOLAM 100MG-0.9% NS 100ML 100 ML IV PRN (17:49)
[2019-06-19] MEDS ORDERED: VANCOMYCIN 1GM+NS 250ML 250 ML IV SCH (18:00)
[2019-06-19 19:52] LABS: BASOPHILS % (AUTO) 0.8 % (0.0-5.0); HEMATOCRIT 36.7 % (42-54); LYMPHOCYTES % (AUTO) 3.6 % (21.0-51.0); MEAN CORPUSCULAR HEMOGLOBIN 32.8 pg (27.0-33.0); MEAN CORPUSCULAR HGB CONC 32.4 g/dL (32.0-36.0); MEAN CORPUSCULAR VOLUME 101.1 fL (79-99); MONOCYTES % (AUTO) 3.9 % (3.0-13.0); NEUTROPHILS % (AUTO) 91.2 % (40.0-77.0); PLATELET COUNT (AUTO) 217 K/uL (130-400); RED BLOOD CELL COUNT(AUTO) 3.63 MIL/uL (4.50-6.20); RED CELL DISTRIBUTION WIDTH 13.2 % (11.0-15.5); WHITE BLOOD COUNT (AUTO) 3.9 K/uL (4.8-10.8)
[2019-06-19 20:17] LABS: CREATININE 1.2 mg/dL (0.5-1.5); POTASSIUM 4.5 mmol/L (3.5-5.1)
[2019-06-19 20:21] LABS: ALBUMIN 1.5 g/dL (3.5-5.0); BILIRUBIN,TOTAL 0.9 mg/dL (0.2-1.0); TOTAL PROTEIN, SERUM 4.2 g/dL (6.0-8.3)
[2019-06-19] MEDS ORDERED: HYDROCORTISONE SOD SUCCINATE 100 MG/2 ML VIAL IM SCH (21:00)
[2019-06-19] MEDS ORDERED: SODIUM CHLORIDE 0.9% 1000ML 1,000 ML IV ONE (21:15)
[2019-06-19] MEDS: HYDROCORTISONE SOD SUCCINATE 100 MG/2 ML VIAL IM SCH (21:34)
[2019-06-20] VITALS (44 sets, daily range): BP systolic 83–110; BP diastolic 51–71
[2019-06-20 03:43] LABS: HEMATOCRIT 32.5 % (42-54); MEAN CORPUSCULAR HEMOGLOBIN 32.9 pg (27.0-33.0); MEAN CORPUSCULAR VOLUME 102.8 fL (79-99); PLATELET COUNT (AUTO) 179 K/uL (130-400); RED BLOOD CELL COUNT(AUTO) 3.16 MIL/uL (4.50-6.20); RED CELL DISTRIBUTION WIDTH 13.2 % (11.0-15.5)
[2019-06-20 04:00] LABS: INR 1.02 (0.85-1.15); PARTIAL THROMBOPLASTIN TIME 51.8 SEC (26.3-35.5); PROTHROMBIN TIME 10.7 SEC (9.6-11.6)
[2019-06-20 04:09] LABS: ALBUMIN 1.2 g/dL (3.5-5.0); BILIRUBIN,TOTAL 0.9 mg/dL (0.2-1.0); CREATININE 1.3 mg/dL (0.5-1.5); PHOSPHORUS 3.8 mg/dL (2.5-4.9); POTASSIUM 4.4 mmol/L (3.5-5.1); TOTAL PROTEIN, SERUM 3.9 g/dL (6.0-8.3)
[2019-06-20 04:10] LABS: ABG BASE EXCESS -2.9 mmol/L (-2.0-3.0); ABG HCO3 21.8 mmol/L (21.0-28.0); ABG PCO2 38 mmHg (35-48)
[2019-06-20] MEDS ORDERED: SODIUM CHLORIDE 0.9% IV SCH (05:00)
[2019-06-20] MEDS ORDERED: [UNRECOGNIZED DRUG - OTHER] IV SCH (05:00)
[2019-06-20] MEDS ORDERED: VANCOMYCIN 0.75 GM in SODIUM CHLORIDE 0.9% 250 ML IV SCH (06:00)
[2019-06-20] MEDS: HYDROCORTISONE SOD SUCCINATE 100 MG/2 ML VIAL IM SCH (06:59)
[2019-06-20] MEDS: ARTIFICAL TEARS SOL 15 ML OU SCH ×4 (07:00→22:08)
[2019-06-20] MEDS: ZOSYN 3.375GM+NS 50ML 50 ML IV SCH ×3 (07:00→21:01)
[2019-06-20] MEDS: LACTATED RINGERS 1000ML 1,000 ML IV SCH ×3 (07:00→19:10)
[2019-06-20] MEDS: FAMOTIDINE/PF 20 MG/2 ML VIAL IV SCH ×2 (08:30→21:01)
[2019-06-20] MEDS: FLUCONAZOLE 400 MG/NS 200 ML 200 ML IV SCH (08:30)
[2019-06-20] MEDS: ENOXAPARIN SODIUM 40 MG/0.4 ML SYRINGE SQ SCH (08:31)
[2019-06-20] MEDS: HYDROCORTISONE SOD SUCCINATE 100 MG/2 ML VIAL IV SCH ×2 (12:15→21:01)
[2019-06-20] MEDS: MIDAZOLAM 100MG-0.9% NS 100ML 100 ML IV PRN (12:15)
[2019-06-20] MEDS: FENTANYL 2500MCG+NS 250ML 250 ML IV PRN ×2 (12:16→18:24)
--- NOTE | 2019-06-20 13:05 | NUR ---
RD FOLLOW UP RD CONSULTED FOR TPN RECOMMENDATIONS. PICC LINE IN PLACE. RD RECOMMENDS START TPN VIA PICC USING PRE-MIXED CLINIMIX 5/15 AT 65ML/HR ADD 20% INTRA-LIPIDS AND 10ML ADULT MULTIVITAMINS RUN AND MONITOR LIPID PANEL EVERY THU, THU AND THURSDAY MONITOR LIPASE LEVELS MONITOR CMP, Mg, PHOS, AND K LEVELS DAILY RD WILL CONTINUE TO MONITOR AND FOLLOW UP, THANK YOU. Addendum: 06/20/19 at [address] Amended: Links added.
--- NOTE | 2019-06-20 13:29 | NUR ---
OR scheduled OR application consultant called for Exploratory Laparotomy [place]ibel [place] [address]/21/19 as per pema Fulton's order
[2019-06-20] MEDS: FAT EMULSIONS 20% 250ML 250 ML IV SCH (16:06)
[2019-06-20] MEDS ORDERED: FAT EMULSIONS 20% 250ML 250 ML IV SCH (16:09)
[2019-06-20] MEDS ORDERED: M.V.I. IV [ADULT] 10 ML in CLINIMIX E 5%-15% 2,000 ML IV SCH (16:15)
[2019-06-20] MEDS: VANCOMYCIN 1GM+NS 250ML 250 ML IV SCH (18:33)
[2019-06-20] MEDS ORDERED: morphine PO (19:31)
[2019-06-20] MEDS ORDERED: PANT40TA25 PO (19:31)
[2019-06-20] MEDS ORDERED: PROCHLORPERAZINE (19:31)
[2019-06-20] MEDS ORDERED: TAMS-1 PO (19:31)
[2019-06-20] MEDS ORDERED: MORPHINE PO (19:31)
[2019-06-20] MEDS ORDERED: PROCHLORPERAZINE PO (19:31)
[2019-06-20] MEDS ORDERED: CREON12 PO (19:31)
[2019-06-21] VITALS (42 sets, daily range): BP systolic 90–166; BP diastolic 60–99
[2019-06-21] MEDS: INSULIN HUMULIN R 100 UNIT/ML 3ML SQ SCH ×5 (00:07→23:43)
[2019-06-21] MEDS: LACTATED RINGERS 1000ML 1,000 ML IV SCH ×2 (01:39→17:39)
[2019-06-21 03:56] LABS: ABG BASE EXCESS -2.6 mmol/L (-2.0-3.0); ABG HCO3 22.9 mmol/L (21.0-28.0); ABG OXYGEN SATURATION 98.6 % (95.0-99.0); ABG PCO2 42 mmHg (35-48)
[2019-06-21 04:07] LABS: HEMATOCRIT 28.6 % (42-54); MEAN CORPUSCULAR HEMOGLOBIN 32.5 pg (27.0-33.0); MEAN CORPUSCULAR HGB CONC 31.5 g/dL (32.0-36.0); MEAN CORPUSCULAR VOLUME 103.2 fL (79-99); PLATELET COUNT (AUTO) 106 K/uL (130-400); RED BLOOD CELL COUNT(AUTO) 2.77 MIL/uL (4.50-6.20); RED CELL DISTRIBUTION WIDTH 13.7 % (11.0-15.5); WHITE BLOOD COUNT (AUTO) 5.2 K/uL (4.8-10.8)
[2019-06-21] MEDS: ZOSYN 3.375GM+NS 50ML 50 ML IV SCH ×3 (04:17→21:07)
[2019-06-21] MEDS: ARTIFICAL TEARS SOL 15 ML OU SCH ×4 (04:17→21:08)
[2019-06-21] MEDS: HYDROCORTISONE SOD SUCCINATE 100 MG/2 ML VIAL IV SCH ×3 (04:17→21:08)
[2019-06-21 04:20] LABS: INR 0.96 (0.85-1.15); PARTIAL THROMBOPLASTIN TIME 47.4 SEC (26.3-35.5); PROTHROMBIN TIME 10.1 SEC (9.6-11.6)
[2019-06-21] MEDS: SODIUM CHLORIDE 0.9% IV SCH (04:21)
[2019-06-21] MEDS: [UNRECOGNIZED DRUG - OTHER] IV SCH (04:21)
[2019-06-21 04:35] LABS: ALBUMIN 1.1 g/dL (3.5-5.0); BILIRUBIN,TOTAL 0.6 mg/dL (0.2-1.0); CREATININE 1.3 mg/dL (0.5-1.5); MAGNESIUM 2.8 mg/dL (1.80-2.40); PHOSPHORUS 3.3 mg/dL (2.5-4.9); POTASSIUM 4.3 mmol/L (3.5-5.1); TOTAL PROTEIN, SERUM 4.3 g/dL (6.0-8.3)
[2019-06-21] MEDS: VANCOMYCIN 1GM+NS 250ML 250 ML IV SCH ×2 (05:34→17:39)
[2019-06-21] MEDS: MIDAZOLAM 100MG-0.9% NS 100ML 100 ML IV PRN (07:44)
[2019-06-21] MEDS: FLUCONAZOLE 400 MG/NS 200 ML 200 ML IV SCH (08:39)
[2019-06-21] MEDS: ENOXAPARIN SODIUM 40 MG/0.4 ML SYRINGE SQ SCH (08:39)
[2019-06-21] MEDS: FAMOTIDINE/PF 20 MG/2 ML VIAL IV SCH ×2 (08:39→21:08)
[2019-06-21] MEDS ORDERED: M.V.I. IV [ADULT] 10 ML in CLINIMIX E 5%-15% 2,000 ML IV SCH (09:00)
--- NOTE | 2019-06-21 09:35 | NUR ---
Pt taken off vent by OR staff and taken to surgery.
[2019-06-21] MEDS ORDERED: ROCURONIUM 10MG/1ML SYR 10 MG/ML ML ONE ×2 (09:45→11:16)
[2019-06-21] MEDS ORDERED: FENTANYL CITRATE PF 50 MCG/1 ML 2ML VIAL ONE ×2 (10:16→11:35)
[2019-06-21] MEDS ORDERED: ALBUMIN (HUMAN) 5% 500 ML IV ONE (11:32)
--- NOTE | 2019-06-21 13:00 | NUR ---
PATIENT BACK FROM SURGERY WITH A NEW ART LINE IN PLACE AND HAS WOUND VAC TO ABDOMEN ALONG WITH COLOSTOMY WITH NO DRAINAGE. NG TUBE IN PLACE AND PLACED ON LOW INTERMITTENT SUCTION. DR LIU HERE TO SEE PATIENT AND ENCOURAGED ME TO INCREASE FENTANYL DUE TO INCREASED BP DUE TO THE PAIN. WILL RE-EVALUATE TOMORROW TO SEE IF HE'LL BE READY FOR EXTUBATION. Addendum: 06/21/19 at 1409 by VAMSI VEGAS RN RN Amended: Links added.
[2019-06-21] MEDS: FENTANYL 2500MCG+NS 250ML 250 ML IV PRN (19:26)
[2019-06-22] VITALS (84 sets, daily range): BP systolic 87–177; BP diastolic 57–111
[2019-06-22 04:10] LABS: ABG OXYGEN SATURATION 97.8 % (95.0-99.0); ABG PCO2 43 mmHg (35-48)
[2019-06-22] MEDS ORDERED: SODIUM BICARB 8.4% 50ML SYRINGE IVP SCH (04:45)
[2019-06-22] MEDS ORDERED: SODIUM BICARB 50MEQ 50ML VIAL ONE (04:56)
[2019-06-22] MEDS: SODIUM CHLORIDE 0.9% IV SCH (05:00)
[2019-06-22] MEDS: [UNRECOGNIZED DRUG - OTHER] IV SCH (05:00)
[2019-06-22] MEDS: HYDROCORTISONE SOD SUCCINATE 100 MG/2 ML VIAL IV SCH ×3 (05:04→20:45)
[2019-06-22] MEDS: ARTIFICAL TEARS SOL 15 ML OU SCH ×4 (05:04→20:46)
[2019-06-22] MEDS: ZOSYN 3.375GM+NS 50ML 50 ML IV SCH ×3 (05:06→20:44)
[2019-06-22 05:27] LABS: HEMATOCRIT 25.9 % (42-54); MEAN CORPUSCULAR HEMOGLOBIN 33.2 pg (27.0-33.0); MEAN CORPUSCULAR VOLUME 103.6 fL (79-99); NUCLEATED RED BLOOD CELLS 0.4 % (0.0-0.19); PLATELET COUNT (AUTO) 72 K/uL (130-400); RED CELL DISTRIBUTION WIDTH 14.1 % (11.0-15.5); WHITE BLOOD COUNT (AUTO) 5.6 K/uL (4.8-10.8)
[2019-06-22 05:53] LABS: INR 0.88 (0.85-1.15); PARTIAL THROMBOPLASTIN TIME 40.4 SEC (26.3-35.5); PROTHROMBIN TIME 9.3 SEC (9.6-11.6)
[2019-06-22 05:55] LABS: ALBUMIN 1.2 g/dL (3.5-5.0); BILIRUBIN,TOTAL 0.9 mg/dL (0.2-1.0); CREATININE 1.2 mg/dL (0.5-1.5); PHOSPHORUS 3.1 mg/dL (2.5-4.9); POTASSIUM 4.5 mmol/L (3.5-5.1); TOTAL PROTEIN, SERUM 4.1 g/dL (6.0-8.3)
[2019-06-22] MEDS: VANCOMYCIN 1GM+NS 250ML 250 ML IV SCH ×2 (06:01→17:59)
[2019-06-22] MEDS: INSULIN HUMULIN R 100 UNIT/ML 3ML SQ SCH ×3 (06:26→18:12)
[2019-06-22] MEDS: MIDAZOLAM 100MG-0.9% NS 100ML 100 ML IV PRN (06:26)
[2019-06-22] MEDS: FLUCONAZOLE 400 MG/NS 200 ML 200 ML IV SCH (08:26)
[2019-06-22] MEDS: FAMOTIDINE/PF 20 MG/2 ML VIAL IV SCH ×2 (08:26→20:45)
[2019-06-22 09:05] LABS: ABG BASE EXCESS -1.7 mmol/L (-2.0-3.0); ABG HCO3 22.7 mmol/L (21.0-28.0); ABG OXYGEN SATURATION 98.7 % (95.0-99.0); ABG PCO2 38 mmHg (35-48)
[2019-06-22] MEDS: FAT EMULSIONS 20% 250ML 250 ML IV SCH (10:59)
[2019-06-22] MEDS: LACTATED RINGERS 1000ML 1,000 ML IV SCH ×2 (10:59→20:46)
[2019-06-22] MEDS ORDERED: M.V.I. IV [ADULT] 10 ML in CLINIMIX E 5%-15% 2,000 ML IV SCH (18:00)
[2019-06-23] VITALS (45 sets, daily range): BP systolic 129–182; BP diastolic 58–107
[2019-06-23] MEDS: INSULIN HUMULIN R 100 UNIT/ML 3ML SQ SCH ×4 (00:36→17:42)
[2019-06-23 04:23] LABS: HEMATOCRIT 25.9 % (42-54); MEAN CORPUSCULAR HEMOGLOBIN 32.7 pg (27.0-33.0); MEAN CORPUSCULAR HGB CONC 31.7 g/dL (32.0-36.0); MEAN CORPUSCULAR VOLUME 103.2 fL (79-99); NUCLEATED RED BLOOD CELLS 0.3 % (0.0-0.19); PLATELET COUNT (AUTO) 60 K/uL (130-400); RED BLOOD CELL COUNT(AUTO) 2.51 MIL/uL (4.50-6.20); RED CELL DISTRIBUTION WIDTH 14.4 % (11.0-15.5); WHITE BLOOD COUNT (AUTO) 6.8 K/uL (4.8-10.8)
[2019-06-23] MEDS: HYDRALAZINE HCL 20 MG/ML VIAL IV PRN ×3 (04:45→22:42)
[2019-06-23 04:52] LABS: PLATELET MORPHOLOGY COMMENT DECREASED
[2019-06-23 05:00] LABS: ALBUMIN 1.2 g/dL (3.5-5.0); BILIRUBIN,TOTAL 0.9 mg/dL (0.2-1.0); CREATININE 1.2 mg/dL (0.5-1.5); MAGNESIUM 2.6 mg/dL (1.80-2.40); PHOSPHORUS 3.5 mg/dL (2.5-4.9); POTASSIUM 3.8 mmol/L (3.5-5.1); TOTAL PROTEIN, SERUM 4.3 g/dL (6.0-8.3)
[2019-06-23] MEDS: [UNRECOGNIZED DRUG - OTHER] IV SCH (05:00)
[2019-06-23] MEDS: SODIUM CHLORIDE 0.9% IV SCH (05:00)
[2019-06-23] MEDS: ZOSYN 3.375GM+NS 50ML 50 ML IV SCH ×2 (05:18→13:27)
[2019-06-23] MEDS: ARTIFICAL TEARS SOL 15 ML OU SCH ×4 (05:18→22:08)
[2019-06-23] MEDS: HYDROCORTISONE SOD SUCCINATE 100 MG/2 ML VIAL IV SCH (05:18)
[2019-06-23] MEDS: VANCOMYCIN 1GM+NS 250ML 250 ML IV SCH (05:19)
[2019-06-23] MEDS: FLUCONAZOLE 400 MG/NS 200 ML 200 ML IV SCH (08:22)
[2019-06-23] MEDS: FAMOTIDINE/PF 20 MG/2 ML VIAL IV SCH ×2 (08:22→20:05)
[2019-06-23] MEDS: FAT EMULSIONS 20% 250ML 250 ML IV SCH (10:24)
--- NOTE | 2019-06-23 10:38 | NUR ---
RD FOLLOW UP RD CONSULTED FOR TUBE FEEDING RECOMMENDATIONS. RD RECOMMENDS TO START TUBE FEEDING USING VITAL AF 1.2 AT 10ML FOR THE FIRST 24 HRS IF TOLERATING WELL AFTER 24HRS, INCREASE TF RATE BY 5MLS EVERY 5HRS BEGIN TO TAPER TPN ONCE VITAL AF REACHES 25ML/HR WHEN PT CAN TOLERATE VITAL AF AT 35ML/HR, D/C TPN VITAL AF 1.2 GOAL RATE IS 60ML/HR, FLUSH WITH 320ML Q6HRS MONITOR LABS, RESIDUALS, BM RD WILL FOLLOW UP IN [address] IF ANY QUESTIONS OR CONCERNS ARISE, THANK YOU. Addendum: 06/23/19 at [address] Amended: Links added.
[2019-06-23 10:54] LABS: ABG BASE EXCESS -0.5 mmol/L (-2.0-3.0); ABG HCO3 22.7 mmol/L (21.0-28.0); ABG OXYGEN SATURATION 97.4 % (95.0-99.0); ABG PCO2 33 mmHg (35-48)
[2019-06-23] MEDS: LACTATED RINGERS 1000ML 1,000 ML IV SCH (11:18)
--- NOTE | 2019-06-23 13:00 | NUR ---
MD VISIT Dr. Levi and dr. Fulton in to see pt, new orders received and will be carried out.
[2019-06-23] MEDS: FUROSEMIDE 10 MG/ML 2ML VIAL IV SCH (13:27)
--- NOTE | 2019-06-23 14:38 | NUR ---
Patient placed back on assist control due to tachypnea (30-40s), tachycardia 120s Addendum: 06/23/19 at 1441 by VIRI WALKER RT Amended: Links added.
[2019-06-23] MEDS: LEVOFLOXACIN 500 MG/D5W 100 ML 100 ML IV SCH (20:40)
[2019-06-23] MEDS: METRONIDAZOLE 500MG/100ML BAG 100 ML IV SCH (22:05)
[2019-06-24] VITALS (32 sets, daily range): BP systolic 111–179; BP diastolic 74–100
[2019-06-24] MEDS: FUROSEMIDE 10 MG/ML 2ML VIAL IV SCH ×3 (01:10→19:49)
[2019-06-24 04:12] LABS: HEMATOCRIT 27.6 % (42-54); MEAN CORPUSCULAR HEMOGLOBIN 32.1 pg (27.0-33.0); MEAN CORPUSCULAR HGB CONC 32.2 g/dL (32.0-36.0); MEAN CORPUSCULAR VOLUME 99.6 fL (79-99); NUCLEATED RED BLOOD CELLS 0.3 % (0.0-0.19); PLATELET COUNT (AUTO) 71 K/uL (130-400); RED BLOOD CELL COUNT(AUTO) 2.77 MIL/uL (4.50-6.20); RED CELL DISTRIBUTION WIDTH 14.1 % (11.0-15.5); WHITE BLOOD COUNT (AUTO) 5.8 K/uL (4.8-10.8)
[2019-06-24 04:34] LABS: ALBUMIN 1.3 g/dL (3.5-5.0); BILIRUBIN,TOTAL 0.9 mg/dL (0.2-1.0); CREATININE 1.2 mg/dL (0.5-1.5); TOTAL PROTEIN, SERUM 4.7 g/dL (6.0-8.3)
[2019-06-24 04:37] LABS: POTASSIUM 2.9 mmol/L (3.5-5.1)
[2019-06-24] MEDS: INSULIN HUMULIN R 100 UNIT/ML 3ML SQ SCH ×4 (06:00→18:00)
[2019-06-24] MEDS: METRONIDAZOLE 500MG/100ML BAG 100 ML IV SCH ×3 (07:25→22:38)
[2019-06-24] MEDS: ARTIFICAL TEARS SOL 15 ML OU SCH ×5 (07:27→22:39)
[2019-06-24] MEDS: POTASSIUM CHLORIDE 10% ELIXIR 20 MEQ/15 ML UDCUP PO PRN ×8 (07:34→20:19)
[2019-06-24] MEDS: FLUCONAZOLE 400 MG/NS 200 ML 200 ML IV SCH (08:12)
[2019-06-24] MEDS: FAMOTIDINE/PF 20 MG/2 ML VIAL IV SCH ×2 (08:12→19:49)
[2019-06-24] MEDS: POTASSIUM CHLORIDE 10MEQ/100ML 100 ML IV PRN (08:23)
--- NOTE | 2019-06-24 08:27 | NUR ---
RD FOLLOW-UP LABS REVIEWED. MEDS REVIEWED. CURRENT TUBE FEEDING AT 10ML/HR, WITH 0ML RESIDUALS. LBM: 06/23; DIARRHEA NOTED. RD RECOMMENDS TO CONTINUE TPN/EN RECOMMENDATIONS: INCREASE TUBE FEEDING RATE BY 5ML/HR, TOLERATED TAPER TPN AND FAT EMULSION AT 25ML/HR, D/C AT 35ML/HR CONTINUE FLUSHES- WILL CONTINUE TO MONITOR Na MONITOR RESIDUALS, LABS, BM RD WILL CONTINUE TO MONITOR AND FOLLOW UP, THANK YOU. Addendum: 06/24/19 at [address] Amended: Links added.
[2019-06-24] MEDS: LACTATED RINGERS 1000ML 1,000 ML IV SCH (08:58)
[2019-06-24] MEDS: HYDRALAZINE HCL 20 MG/ML VIAL IV PRN (09:16)
--- NOTE | 2019-06-24 09:45 | NUR ---
ANGIE RUIZ,WORKERS COMPENSATION CLAIMS SUPERVISOR AT BEDSIDE, NOTIFIED ABOUT PT TOLERATING FROM [id number] WITH CPAP TRIALS, BECAME TACHYCARDIC WITH LABORED BREATHING , PLACED BACK ON AC MODE AT 0930 [address]
--- NOTE | 2019-06-24 10:29 | NUR ---
[facility] consult Patient assessed as ordered. Wound vac removed from lower abdomen; distal end of abdominal incision. Picture taken and dimensions obtained. Wound vac reapplied using 2 pieces of black foam; drape placed and wound vac resumed at 125mmHg continuous suction. No leaks identified. Patient tolerated procedure without adverse effects. Report given to patient's nurse, Jonah SINHA. Addendum: 06/24/19 at 1033 by JESSY LI RN/JAVIER Amended: Links added.
[2019-06-24] MEDS: MIDAZOLAM 100MG-0.9% NS 100ML 100 ML IV PRN (10:54)
[2019-06-24] MEDS: AMLODIPINE BESYLATE 5 MG TAB PO SCH (12:38)
[2019-06-24 14:35] LABS: MAGNESIUM 2.1 mg/dL (1.80-2.40); POTASSIUM 3.2 mmol/L (3.5-5.1)
[2019-06-24] MEDS: FENTANYL 2500MCG+NS 250ML 250 ML IV PRN (16:26)
--- NOTE | 2019-06-24 19:40 | NUR ---
DR. SHAYNA CORRAL AT BEDSIDE UPDATED ON PT STATUS MEDICATIONS, I&O'S, AND DRESSING CHANGES DONE EARLIER TODAY. NO NEW ORDERS AT THIS TIME.
[2019-06-24] MEDS ORDERED: PHARMACY COMMUNICATION MISC SCH (19:45)
[2019-06-24] MEDS: LEVOFLOXACIN 500 MG/D5W 100 ML 100 ML IV SCH (19:49)
[2019-06-25] VITALS (36 sets, daily range): BP systolic 99–154; BP diastolic 62–93
[2019-06-25] MEDS: LACTATED RINGERS 1000ML 1,000 ML IV SCH (03:27)
[2019-06-25] MEDS: ARTIFICAL TEARS SOL 15 ML OU SCH ×4 (03:28→21:12)
[2019-06-25] MEDS: FUROSEMIDE 10 MG/ML 2ML VIAL IV SCH ×3 (03:28→19:57)
[2019-06-25 04:09] LABS: HEMATOCRIT 29.7 % (42-54); MEAN CORPUSCULAR HEMOGLOBIN 32.9 pg (27.0-33.0); MEAN CORPUSCULAR VOLUME 99.7 fL (79-99); NUCLEATED RED BLOOD CELLS 0.4 % (0.0-0.19); PLATELET COUNT (AUTO) 81 K/uL (130-400); RED BLOOD CELL COUNT(AUTO) 2.98 MIL/uL (4.50-6.20); RED CELL DISTRIBUTION WIDTH 14.3 % (11.0-15.5); WHITE BLOOD COUNT (AUTO) 8.1 K/uL (4.8-10.8)
[2019-06-25 04:25] LABS: CREATININE 1.3 mg/dL (0.5-1.5); MAGNESIUM 1.8 mg/dL (1.80-2.40); POTASSIUM 3.9 mmol/L (3.5-5.1)
[2019-06-25] MEDS: MAGNESIUM 2GM PREMIX 50ML 50 ML IV PRN (04:33)
[2019-06-25] MEDS: POTASSIUM CHLORIDE 10% ELIXIR 20 MEQ/15 ML UDCUP PO PRN (04:33)
[2019-06-25] MEDS: METRONIDAZOLE 500MG/100ML BAG 100 ML IV SCH ×3 (05:09→21:07)
[2019-06-25] MEDS: INSULIN HUMULIN R 100 UNIT/ML 3ML SQ SCH ×4 (06:00→17:19)
[2019-06-25] MEDS: FAMOTIDINE/PF 20 MG/2 ML VIAL IV SCH ×2 (08:30→21:07)
[2019-06-25] MEDS: AMLODIPINE BESYLATE 5 MG TAB PO SCH (08:30)
[2019-06-25] MEDS: FLUCONAZOLE 400 MG/NS 200 ML 200 ML IV SCH (08:31)
[2019-06-25 08:36] LABS: ABG BASE EXCESS 5.3 mmol/L (-2.0-3.0); ABG OXYGEN SATURATION 97.7 % (95.0-99.0); ABG PCO2 39 mmHg (35-48)
--- NOTE | 2019-06-25 09:35 | NUR ---
TOLERATED 2 HOURS OF CPAP TRIALS, NOTED WITH ST 120'S, USING ABDOMINAL MUSCLES, RESPIRATIONS 30'S, PLACED BACK ON AC MODE AT THIS TIME AND BACK ON SEDATION, ORDERED PER
--- NOTE | 2019-06-25 10:10 | NUR ---
NOTED WITH EYES CLOSED, VITAL SIGNS STABLE, ST 101, RESPIRATIONS 16, O2 SAT AT 100%. PT'S AT BEDSIDE
[2019-06-25] MEDS: MIDAZOLAM 100MG-0.9% NS 100ML 100 ML IV PRN (11:22)
[2019-06-25] MEDS: FENTANYL 2500MCG+NS 250ML 250 ML IV PRN (16:10)
[2019-06-25] MEDS: LEVOFLOXACIN 500 MG/D5W 100 ML 100 ML IV SCH (19:54)
[2019-06-26] VITALS (77 sets, daily range): BP systolic 86–151; BP diastolic 43–91
--- NOTE | 2019-06-26 00:23 | NUR ---
TF OFF NOW FOR HIGH RESIDUALS.
[2019-06-26] MEDS: FUROSEMIDE 10 MG/ML 2ML VIAL IV SCH (03:56)
[2019-06-26] MEDS: ARTIFICAL TEARS SOL 15 ML OU SCH ×4 (03:57→23:13)
[2019-06-26] MEDS: MIDAZOLAM 100MG-0.9% NS 100ML 100 ML IV PRN (04:40)
[2019-06-26 05:12] LABS: BASOPHILS % (AUTO) 0.3 % (0.0-5.0); EOSINOPHILS % (AUTO) 0.7 % (0.0-8.0); HEMATOCRIT 25.4 % (42-54); LYMPHOCYTES % (AUTO) 6.8 % (21.0-51.0); MEAN CORPUSCULAR HEMOGLOBIN 33.3 pg (27.0-33.0); MEAN CORPUSCULAR HGB CONC 33.1 g/dL (32.0-36.0); MEAN CORPUSCULAR VOLUME 100.8 fL (79-99); MONOCYTES % (AUTO) 2.5 % (3.0-13.0); NEUTROPHILS % (AUTO) 85.8 % (40.0-77.0); PLATELET COUNT (AUTO) 135 K/uL (130-400); RED BLOOD CELL COUNT(AUTO) 2.52 MIL/uL (4.50-6.20); WHITE BLOOD COUNT (AUTO) 8.9 K/uL (4.8-10.8)
[2019-06-26 05:22] LABS: CREATININE 1.4 mg/dL (0.5-1.5); MAGNESIUM 2.1 mg/dL (1.80-2.40); PHOSPHORUS 4.4 mg/dL (2.5-4.9); POTASSIUM 3.6 mmol/L (3.5-5.1)
[2019-06-26] MEDS: INSULIN HUMULIN R 100 UNIT/ML 3ML SQ SCH ×5 (05:45→23:52)
[2019-06-26] MEDS: METRONIDAZOLE 500MG/100ML BAG 100 ML IV SCH ×3 (06:30→23:13)
[2019-06-26] MEDS: POTASSIUM CHLORIDE 10% ELIXIR 20 MEQ/15 ML UDCUP PO PRN ×2 (07:50→09:43)
[2019-06-26 08:09] LABS: ABG BASE EXCESS 5.1 mmol/L (-2.0-3.0); ABG HCO3 28.8 mmol/L (21.0-28.0); ABG OXYGEN SATURATION 93.3 % (95.0-99.0); ABG PCO2 39 mmHg (35-48)
[2019-06-26] MEDS: FAMOTIDINE/PF 20 MG/2 ML VIAL IV SCH ×2 (08:23→19:38)
[2019-06-26] MEDS: FLUCONAZOLE 400 MG/NS 200 ML 200 ML IV SCH (08:23)
--- NOTE | 2019-06-26 08:24 | NUR ---
HELD DOSE OF NORVASC AT THIS TIME, NOTED SBP IN THE 90'S, LATEST B/P 117/78, HR 104, WILL CONTINUE TO MONITOR, WILL NOTIFY BENCH PRESS OPERATOR.
[2019-06-26] MEDS: AMLODIPINE BESYLATE 5 MG TAB PO SCH (08:46)
[2019-06-26] MEDS: ACETAMINOPHEN 325 MG TAB PO PRN (08:49)
--- NOTE | 2019-06-26 09:00 | NUR ---
DR BELL AT BEDSIDE, MADE AWARE ABOUT HIGH RESIDUALS AND VITAL SIGNS, NEW ORDERS GIVEN
--- NOTE | 2019-06-26 09:00 | NUR ---
DR BELL AT BEDSIDE, MADE AWARE ABOUT HIGH RESIDUALS AND VITAL SIGNS, NEW ORDERS GIVEN
--- NOTE | 2019-06-26 09:15 | NUR ---
TOLERATED 15 MINS ON CPAP TRIALS, NOTED WITH ST 120'S, RESPIRATIONS IN THE 40'S, PLACED BACK TO AC MODE PER ALEXX RT. PLACED BACK ON SEDATION, NOTED TO BE CALMER AFTER BEING PLACED ON AC MODE, HR 95-105, RESPIRATIONS 18
[2019-06-26] MEDS: METOCLOPRAMIDE 10 MG/2 ML VIAL IVP SCH ×3 (11:02→23:13)
--- NOTE | 2019-06-26 11:46 | NUR ---
Follow Up TF on hold due to pt having high residuals, Reglan dose started- journal entry audit clerk notified, as per RN. Pt having BM noted. Labs reviewed. Meds reviewed. RD recommends to hold TF for 24hrs- continue to administer Reglan dose Increase TF after 24hrs- monitor residuals and BM If pt continues with high residuals- recommend d/c TF and start TPN, RN notified RD will continue to monitor and f/u. Addendum: 06/26/19 at [address] Amended: Links added.
--- NOTE | 2019-06-26 12:45 | NUR ---
DR GONZALEZ AT BEDSIDE, REPORT GIVEN TO MD, INCLUDING HIGH RESIDUALS THROUGHOUT THE DAY, NORVASC NOT GIVEN THIS AM, CURRENT VS, AND LOW GRADE TEMP THIS AM. NEW ORDERS GIVEN.
--- NOTE | 2019-06-26 13:15 | NUR ---
DR CORRAL AT BEDSIDE, GUERO REMOVED TO LOWER ASPECT OF ABDOMINAL WOUND, WOUND VAC DISCONTINUED, WET TO DRY DRESSING PERFORMED PER MD AT THIS TIME. INSTRUCTIONS GIVEN PER MD TO REPLACE WOUND VAC TOMORROW AND TO USE ONE SINGLE SPONGE ONLY.
[2019-06-26] MEDS: FENTANYL 2500MCG+NS 250ML 250 ML IV PRN (15:16)
[2019-06-26] MEDS: LEVOFLOXACIN 500 MG/D5W 100 ML 100 ML IV SCH (19:38)
[2019-06-27] VITALS (40 sets, daily range): BP systolic 90–124; BP diastolic 66–88
[2019-06-27] MEDS: MIDAZOLAM 100MG-0.9% NS 100ML 100 ML IV PRN (01:42)
[2019-06-27] MEDS: ARTIFICAL TEARS SOL 15 ML OU SCH ×4 (04:09→21:42)
[2019-06-27 04:21] LABS: HEMATOCRIT 28.9 % (42-54); MEAN CORPUSCULAR HEMOGLOBIN 33.7 pg (27.0-33.0); MEAN CORPUSCULAR HGB CONC 33.2 g/dL (32.0-36.0); MEAN CORPUSCULAR VOLUME 101.4 fL (79-99); PLATELET COUNT (AUTO) 211 K/uL (130-400); RED BLOOD CELL COUNT(AUTO) 2.85 MIL/uL (4.50-6.20); RED CELL DISTRIBUTION WIDTH 14.1 % (11.0-15.5); WHITE BLOOD COUNT (AUTO) 11.1 K/uL (4.8-10.8)
[2019-06-27 04:42] LABS: ALBUMIN 1.3 g/dL (3.5-5.0); BILIRUBIN,TOTAL 0.6 mg/dL (0.2-1.0); CREATININE 1.5 mg/dL (0.5-1.5); MAGNESIUM 2.3 mg/dL (1.80-2.40); PHOSPHORUS 4.8 mg/dL (2.5-4.9); POTASSIUM 3.9 mmol/L (3.5-5.1); TOTAL PROTEIN, SERUM 5.1 g/dL (6.0-8.3)
[2019-06-27] MEDS: POTASSIUM CHLORIDE 20MEQ/100ML 100 ML IV SCH (05:35)
[2019-06-27] MEDS: METRONIDAZOLE 500MG/100ML BAG 100 ML IV SCH ×3 (05:35→21:18)
[2019-06-27] MEDS: METOCLOPRAMIDE 10 MG/2 ML VIAL IVP SCH ×4 (05:36→23:25)
[2019-06-27] MEDS: INSULIN HUMULIN R 100 UNIT/ML 3ML SQ SCH ×4 (05:36→23:55)
[2019-06-27 08:37] LABS: ABG BASE EXCESS 3.1 mmol/L (-2.0-3.0); ABG HCO3 26.6 mmol/L (21.0-28.0); ABG OXYGEN SATURATION 98.2 % (95.0-99.0); ABG PCO2 37 mmHg (35-48)
[2019-06-27] MEDS: FAMOTIDINE/PF 20 MG/2 ML VIAL IV SCH ×2 (10:19→21:18)
[2019-06-27] MEDS: FLUCONAZOLE 400 MG/NS 200 ML 200 ML IV SCH (10:19)
--- NOTE | 2019-06-27 11:03 | NUR ---
RD FOLLOW UP TF ON HOLD, RN NOTIFIED. PT NOT TOLERATING VITAL AF 1.2 AT 20ML/HR, HE IS HAVING 350ML RESIDUALS AND IS NOT EVEN AT GOAL RATE. RD RECOMMENDS TO GO BACK USING TPN AND D/C TF, IF SBO RESOLVED RECOMMEND TO CHANGE TF FORMULA RN NOTIFIED AND WILL SPEAK TO SURGEON- PLEASE NOTIFY RD AT EXTENSION 1909, THANK YOU. Addendum: 06/27/19 at [address] Amended: Links added.
[2019-06-27] MEDS: AMLODIPINE BESYLATE 5 MG TAB PO SCH (12:06)
--- NOTE | 2019-06-27 12:40 | NUR ---
[facility] consult Wound vac reapplied using one piece of black foam, as ordered by Dr. Fulton, and attached to 125mmHg continuous suction. Patient tolerated procedure without adverse effects or complaint.
[2019-06-27] MEDS: LEVOFLOXACIN 500 MG/D5W 100 ML 100 ML IV SCH (19:53)
[2019-06-27] MEDS: NEOMY SULF/BACITRAC ZN/POLY OINT 30GM TUBE TP SCH (21:19)
[2019-06-27] MEDS: FENTANYL 2500MCG+NS 250ML 250 ML IV PRN (21:24)
[2019-06-27] MEDS: ACETAMINOPHEN 325 MG TAB PO PRN (23:25)
[2019-06-28] VITALS (66 sets, daily range): BP systolic 63–138; BP diastolic 40–103
[2019-06-28 03:57] LABS: BASOPHILS % (AUTO) 0.1 % (0.0-5.0); HEMATOCRIT 29.4 % (42-54); LYMPHOCYTES % (AUTO) 5.2 % (21.0-51.0); MEAN CORPUSCULAR HEMOGLOBIN 32.6 pg (27.0-33.0); MEAN CORPUSCULAR HGB CONC 32.3 g/dL (32.0-36.0); MONOCYTES % (AUTO) 4.2 % (3.0-13.0); NEUTROPHILS % (AUTO) 89.6 % (40.0-77.0); PLATELET COUNT (AUTO) 246 K/uL (130-400); RED BLOOD CELL COUNT(AUTO) 2.91 MIL/uL (4.50-6.20); RED CELL DISTRIBUTION WIDTH 14.1 % (11.0-15.5); WHITE BLOOD COUNT (AUTO) 14.6 K/uL (4.8-10.8)
[2019-06-28 04:17] LABS: MAGNESIUM 2.5 mg/dL (1.80-2.40); PHOSPHORUS 5.5 mg/dL (2.5-4.9); POTASSIUM 4.6 mmol/L (3.5-5.1)
[2019-06-28] MEDS: ARTIFICAL TEARS SOL 15 ML OU SCH ×4 (04:43→22:36)
[2019-06-28] MEDS: METOCLOPRAMIDE 10 MG/2 ML VIAL IVP SCH ×3 (05:35→19:12)
[2019-06-28] MEDS: METRONIDAZOLE 500MG/100ML BAG 100 ML IV SCH ×3 (05:35→22:35)
[2019-06-28] MEDS: ACETAMINOPHEN 325 MG TAB PO PRN (05:36)
[2019-06-28] MEDS: INSULIN HUMULIN R 100 UNIT/ML 3ML SQ SCH ×3 (05:51→18:00)
--- NOTE | 2019-06-28 08:30 | NUR ---
WEANING SEDATION COMPLETELY STOPPED FOR WEANING PURPOSES. PT ON CPAP MODE ON VENT. FOLLOWS COMMANDS, BUT IS VERY WEAK AND WITH INCREASED HR AND SHALLOW RESPIRATIONS
--- NOTE | 2019-06-28 08:51 | NUR ---
DR CORRAL ORDERED CT ABD/ REMOVE WOUND VAC
[2019-06-28] MEDS ORDERED: DIATR MEGLU/DIATRIZOATE SODIUM 30 ML BOTTLE ONE (08:58)
[2019-06-28] MEDS: FLUCONAZOLE 400 MG/NS 200 ML 200 ML IV SCH (09:05)
[2019-06-28] MEDS: FAMOTIDINE/PF 20 MG/2 ML VIAL IV SCH ×2 (09:05→20:05)
[2019-06-28] MEDS: AMLODIPINE BESYLATE 5 MG TAB PO SCH (09:06)
[2019-06-28] MEDS: NEOMY SULF/BACITRAC ZN/POLY OINT 30GM TUBE TP SCH ×3 (09:06→20:06)
[2019-06-28 09:26] LABS: ABG BASE EXCESS 2.8 mmol/L (-2.0-3.0); ABG HCO3 28.2 mmol/L (21.0-28.0); ABG OXYGEN SATURATION 93.6 % (95.0-99.0); ABG PCO2 46 mmHg (35-48)
--- NOTE | 2019-06-28 12:03 | NUR ---
CHART CHECK COMPLETED. Pt IS A 58 YEAR OLD MALE ADMITTED SECONDARY TO PERFORATED BOWEL WITH NEW ILEOSTOMY. 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 Pt UNDERWENT SX THIS ADMISSION ON 06/19 AND 06/21. Pt CURRENTLY INTUBATED. RECOMMEND SKILLED SPEECH THERAPY EVALUATION 24 HOURS S/P EXTUBATION AND WHEN CLEARED BY SURGEON. Addendum: 06/28/19 at 1206 by SHARI THOMPSON, [facility] ST Amended: Links added.
--- NOTE | 2019-06-28 12:54 | NUR ---
RD FOLLOW UP PT REMAINS INTUBATED. PENDING CT SCAN W/ CONTRAST, PER RN. RD RECOMMENDS D/C TUBE FEEDING AND INITIATE TPN @65ML/HR WITH 20% FAT EMULSION, RN NOTIFIED. RECOMMENDATIONS LEFT IN PT CHART. PLEASE CONTACT HEATHER WITH ANY QUESTIONS OR CONCERNS AT EXTENSION 1905, THANK YOU. Addendum: 06/28/19 at [address] Amended: Links added.
--- NOTE | 2019-06-28 14:00 | NUR ---
TOLERATED CT OF ABDOMEN, FLUID BOLUS IV GIVEN TOLERATED CT OF ABDOMEN WITHOUT INCIDENT. PT WITH INCREASED HR EVEN WITH SEDATION. AFTER CT SCAN, NG TUBE TO LOW SUCTION, REMOVED 700MLS. BP LOWER, URINE OUTPUT DECREASED, NOTIFIED DR GONZALEZ.RECEIVED ORDERS FOR FLUID BOLUS
[2019-06-28] MEDS ORDERED: SODIUM CHLORIDE 0.9% 1000ML 2,000 ML IV SCH (14:13)
[2019-06-28] MEDS ORDERED: SODIUM CHLORIDE 0.9% 1000ML 2,000 ML IV ONE (14:21)
[2019-06-28] MEDS ORDERED: SODIUM CHLORIDE 0.9% 1000ML 1,000 ML IV STA (16:13)
[2019-06-28] MEDS: NOREPINEPHRINE 4MG/NS 250ML 250 ML IV SCH ×2 (16:50→23:25)
[2019-06-28] MEDS: SODIUM CHLORIDE 0.9% 1000ML 1,000 ML IV SCH (16:52)
[2019-06-28] MEDS ORDERED: RENAL DOSE IV SCH (20:00)
[2019-06-28] MEDS ORDERED: PHARMACY COMMUNICATION MISC SCH (20:00)
[2019-06-28] MEDS: MEROPENEM 500 MG VIAL IVP SCH (20:05)
[2019-06-28] MEDS: LEVOFLOXACIN 500 MG/D5W 100 ML 100 ML IV SCH (20:05)
[2019-06-28] MEDS ORDERED: M.V.I. IV [ADULT] 10 ML in CLINIMIX E 5%-15% 2,000 ML IV SCH (20:15)
[2019-06-29] VITALS (63 sets, daily range): BP systolic 78–163; BP diastolic 54–92
[2019-06-29] MEDS: METOCLOPRAMIDE 10 MG/2 ML VIAL IVP SCH ×4 (00:11→18:09)
[2019-06-29] MEDS: INSULIN HUMULIN R 100 UNIT/ML 3ML SQ SCH ×4 (00:15→18:32)
[2019-06-29] MEDS: FENTANYL 2500MCG+NS 250ML 250 ML IV PRN ×2 (01:38→20:32)
[2019-06-29 04:30] LABS: BILIRUBIN,TOTAL 0.5 mg/dL (0.2-1.0); MAGNESIUM 3.2 mg/dL (1.80-2.40); PHOSPHORUS 5.1 mg/dL (2.5-4.9); POTASSIUM 4.4 mmol/L (3.5-5.1); TOTAL PROTEIN, SERUM 4.6 g/dL (6.0-8.3)
[2019-06-29] MEDS: MEROPENEM 500 MG VIAL IVP SCH ×3 (04:37→19:46)
[2019-06-29] MEDS: SODIUM CHLORIDE 0.9% 1000ML 1,000 ML IV SCH (04:37)
--- NOTE | 2019-06-29 04:55 | NUR ---
JOAQUIN REGALADO ,ORTHOPHOTOGRAPHY TECHNICIAN NOTIFIED THAT PATIENT'S O2 SATURATION DROPPED AFTER BATH, WITH INCREASED LABORED RESPIRATIONS, 40-50'S, LUNGS COARSE , LOW VOLUMES 0-10. ON SIMV SETTINGS ON VENT. PATIENT LAVAGED AND BAGGED BY RT WITH LARGE AMT OF RESP SECRETIONS, RESP SPECIMEN SENT TO LAB , PATIENT CHANGED TO AC 12/550/5/60 AND SEDATION INCREASED. NEW ORDERS RECEIVED.
[2019-06-29] MEDS: ARTIFICAL TEARS SOL 15 ML OU SCH ×4 (04:56→22:09)
[2019-06-29] MEDS ORDERED: COMPOUND PO MISCELLANEOUS 1 EACH MISC MISC PRN (05:15)
[2019-06-29 05:33] LABS: ABG BASE EXCESS 2.6 mmol/L (-2.0-3.0); ABG HCO3 28.2 mmol/L (21.0-28.0); ABG OXYGEN SATURATION 97.3 % (95.0-99.0); ABG PCO2 47 mmHg (35-48)
[2019-06-29] MEDS: METRONIDAZOLE 500MG/100ML BAG 100 ML IV SCH ×3 (05:46→22:04)
[2019-06-29] MEDS: IPRATROPIUM/ALBUTEROL SULFATE 3 ML SOLUTION IH SCH ×4 (06:29→23:15)
[2019-06-29] MEDS: ACETYLCYSTEINE 20% 200MG/ML 4ML VIAL IH SCH ×4 (06:35→23:15)
[2019-06-29 07:23] LABS: INR 0.95 (0.85-1.15); PARTIAL THROMBOPLASTIN TIME 35.3 SEC (26.3-35.5)
[2019-06-29] MEDS: HYDROCORTISONE SOD SUCCINATE 100 MG/2 ML VIAL IV SCH ×3 (07:24→18:09)
[2019-06-29] MEDS: FLUCONAZOLE 400 MG/NS 200 ML 200 ML IV SCH (08:38)
[2019-06-29] MEDS: FAMOTIDINE/PF 20 MG/2 ML VIAL IV SCH ×2 (08:39→20:31)
[2019-06-29] MEDS: AMLODIPINE BESYLATE 5 MG TAB PO SCH (08:39)
[2019-06-29] MEDS: NEOMY SULF/BACITRAC ZN/POLY OINT 30GM TUBE TP SCH ×3 (08:41→20:31)
--- NOTE | 2019-06-29 10:20 | NUR ---
[address] Cohen regarding ct guide perc drain, information provided will call back. 1000 Dr Cohen call back states study reviewed no abscess seen but some fluid collection seen recommends a paracentesis tomorrow so today anticoagulation can be given hold tomorrows dose just incase they want to order the paracentesis. primary nurse notified of the above. Jay downs
[2019-06-29] MEDS: FAT EMULSIONS 20% 250ML 250 ML IV SCH (10:21)
[2019-06-29] MEDS: ENOXAPARIN SODIUM 40 MG/0.4 ML SYRINGE SQ SCH (10:22)
[2019-06-29] MEDS: NOREPINEPHRINE 4MG/NS 250ML 250 ML IV SCH (10:23)
[2019-06-29] MEDS: 1/2 NORMAL SALINE 1,000 ML IV SCH ×2 (10:55→17:00)
--- NOTE | 2019-06-29 11:10 | NUR ---
CONSULT DR GALLOWAY INFORMED ABOUT PT HX STATUS, AND CREATININE LEVELS
[2019-06-29] MEDS ORDERED: [UNRECOGNIZED DRUG - OTHER] IV ONE ×5 (16:00)
[2019-06-29] MEDS ORDERED: CLINIMIX IV ONE ×5 (16:00)
[2019-06-29] MEDS: LEVOFLOXACIN 500 MG/D5W 100 ML 100 ML IV SCH (19:46)
[2019-06-29] MEDS: MIDAZOLAM 100MG-0.9% NS 100ML 100 ML IV PRN (20:32)
[2019-06-30] VITALS (63 sets, daily range): BP systolic 106–149; BP diastolic 62–99
[2019-06-30] MEDS: HYDROCORTISONE SOD SUCCINATE 100 MG/2 ML VIAL IV SCH ×4 (00:16→17:34)
[2019-06-30] MEDS: METOCLOPRAMIDE 10 MG/2 ML VIAL IVP SCH ×4 (00:16→17:35)
[2019-06-30] MEDS: INSULIN HUMULIN R 100 UNIT/ML 3ML SQ SCH ×4 (00:17→17:53)
[2019-06-30] MEDS: 1/2 NORMAL SALINE 1,000 ML IV SCH ×2 (01:47→10:08)
[2019-06-30 03:52] LABS: BASOPHILS % (AUTO) 0.1 % (0.0-5.0); HEMATOCRIT 24.1 % (42-54); LYMPHOCYTES % (AUTO) 4.2 % (21.0-51.0); MEAN CORPUSCULAR HEMOGLOBIN 32.8 pg (27.0-33.0); MEAN CORPUSCULAR HGB CONC 31.5 g/dL (32.0-36.0); MEAN CORPUSCULAR VOLUME 103.9 fL (79-99); MONOCYTES % (AUTO) 3.8 % (3.0-13.0); NEUTROPHILS % (AUTO) 91.3 % (40.0-77.0); PLATELET COUNT (AUTO) 227 K/uL (130-400); RED BLOOD CELL COUNT(AUTO) 2.32 MIL/uL (4.50-6.20); RED CELL DISTRIBUTION WIDTH 14.1 % (11.0-15.5)
[2019-06-30 04:15] LABS: ALBUMIN 0.9 g/dL (3.5-5.0); CREATININE 1.5 mg/dL (0.5-1.5); PHOSPHORUS 3.3 mg/dL (2.5-4.9); POTASSIUM 3.8 mmol/L (3.5-5.1)
[2019-06-30] MEDS: MEROPENEM 500 MG VIAL IVP SCH ×3 (04:57→20:24)
[2019-06-30] MEDS: ARTIFICAL TEARS SOL 15 ML OU SCH ×4 (04:57→22:57)
[2019-06-30] MEDS: METRONIDAZOLE 500MG/100ML BAG 100 ML IV SCH ×3 (05:41→22:55)
[2019-06-30] MEDS: IPRATROPIUM/ALBUTEROL SULFATE 3 ML SOLUTION IH SCH ×4 (06:15→23:34)
[2019-06-30] MEDS: ACETYLCYSTEINE 20% 200MG/ML 4ML VIAL IH SCH ×4 (06:15→23:34)
[2019-06-30] MEDS: FAMOTIDINE/PF 20 MG/2 ML VIAL IV SCH ×2 (07:41→20:24)
[2019-06-30] MEDS: FLUCONAZOLE 400 MG/NS 200 ML 200 ML IV SCH (07:41)
[2019-06-30] MEDS: ENOXAPARIN SODIUM 40 MG/0.4 ML SYRINGE SQ SCH (07:42)
--- NOTE | 2019-06-30 07:42 | NUR ---
HELD DOSE OF LOVENOX, SCHEDULED FOR PARACENTESIS
[2019-06-30] MEDS: NEOMY SULF/BACITRAC ZN/POLY OINT 30GM TUBE TP SCH ×3 (07:48→20:24)
[2019-06-30] MEDS: AMLODIPINE BESYLATE 5 MG TAB PO SCH (07:49)
--- NOTE | 2019-06-30 07:49 | NUR ---
HELD DOSE OF NORVASC, REMAINS WITH LEVOPHED DRIP AT 1 MCG/MIN, CURRENT B/P 125/70, SR 84
[2019-06-30 08:22] LABS: ABG BASE EXCESS 4.6 mmol/L (-2.0-3.0); ABG OXYGEN SATURATION 98.4 % (95.0-99.0); ABG PCO2 42 mmHg (35-48)
[2019-06-30] MEDS: FAT EMULSIONS 20% 250ML 250 ML IV SCH (09:43)
--- NOTE | 2019-06-30 12:00 | NUR ---
U/S GD PARACENTESIS PROCEDRUE PERFORMED AT BEDSIDE BY DR Francie HALL. PUNCTURE SITE LLQ. TOTAL REMOVED 3/.4 LITERS OF CLEAR YELLOW FLUID. SPECIMEN SENT TO LAB. END OF PROCEDURE AT 1140. CATHETER REMOVED AND DRESSING APPLIED. NO BLEEDING NOTED. REPORT GIVEN TO ERNESTINE WALKER AND PATIENT RECOVERED IN ROOM.
[2019-06-30 12:41] LABS: GLUCOSE,BODY FLUID 220 mg/dL (1-40)
[2019-06-30 12:47] LABS: APPEARANCE BODY FLUID CLEAR (CLEAR); BODY FLUID RBC 257 /cu. mm.; BODY FLUID WBC 222 /cu. mm.; COLOR,BODY FLUID YELLOW (LT YELLOW); SPECIMENTYPE,BODY FLUID PARACENTESIS; TOTAL VOLUME,BODY FLUID 3400 mL
[2019-06-30 13:02] LABS: BF LYMPHOCYTE 13 %; BF MESOTHELIAL 9 %; BF MONOCYTE 39 %
[2019-06-30] MEDS ORDERED: FUROSEMIDE 10 MG/ML 10ML VIAL IVP SCH (14:15)
[2019-06-30] MEDS ORDERED: [UNRECOGNIZED DRUG - OTHER] IV ONE ×5 (15:15)
[2019-06-30] MEDS ORDERED: SODIUM ACETATE IV ONE ×10 (15:15→16:00)
[2019-06-30] MEDS ORDERED: POTASSIUM CHLORIDE IV ONE ×10 (15:15→16:00)
[2019-06-30] MEDS ORDERED: [UNRECOGNIZED DRUG - OTHER] IV ONE ×5 (16:00)
[2019-06-30] MEDS: LEVOFLOXACIN 500 MG/D5W 100 ML 100 ML IV SCH (20:24)
[2019-06-30] MEDS ORDERED: FUROSEMIDE 10 MG/ML 2ML VIAL IV SCH (23:30)
[2019-07-01] VITALS (18 sets, daily range): BP systolic 132–157; BP diastolic 72–100
[2019-07-01] MEDS: HYDROCORTISONE SOD SUCCINATE 100 MG/2 ML VIAL IV SCH ×4 (00:37→17:18)
[2019-07-01] MEDS: METOCLOPRAMIDE 10 MG/2 ML VIAL IVP SCH ×4 (00:37→17:18)
[2019-07-01] MEDS: INSULIN HUMULIN R 100 UNIT/ML 3ML SQ SCH ×5 (00:53→19:49)
[2019-07-01 03:47] LABS: HEMATOCRIT 22.8 % (42-54); LYMPHOCYTES % (AUTO) 4.3 % (21.0-51.0); MEAN CORPUSCULAR HGB CONC 31.6 g/dL (32.0-36.0); MEAN CORPUSCULAR VOLUME 101.3 fL (79-99); MONOCYTES % (AUTO) 3.3 % (3.0-13.0); NEUTROPHILS % (AUTO) 91.5 % (40.0-77.0); PLATELET COUNT (AUTO) 257 K/uL (130-400); RED BLOOD CELL COUNT(AUTO) 2.25 MIL/uL (4.50-6.20); RED CELL DISTRIBUTION WIDTH 13.6 % (11.0-15.5); WHITE BLOOD COUNT (AUTO) 9.6 K/uL (4.8-10.8)
[2019-07-01 04:10] LABS: ALBUMIN 0.9 g/dL (3.5-5.0); BILIRUBIN,TOTAL 0.3 mg/dL (0.2-1.0); CREATININE 1.3 mg/dL (0.5-1.5); MAGNESIUM 2.8 mg/dL (1.80-2.40); PHOSPHORUS 2.4 mg/dL (2.5-4.9); TOTAL PROTEIN, SERUM 4.2 g/dL (6.0-8.3)
[2019-07-01 04:12] LABS: POTASSIUM 2.9 mmol/L (3.5-5.1)
[2019-07-01] MEDS: FENTANYL 2500MCG+NS 250ML 250 ML IV PRN (04:15)
[2019-07-01] MEDS: MEROPENEM 500 MG VIAL IVP SCH ×3 (04:15→21:10)
[2019-07-01] MEDS: ARTIFICAL TEARS SOL 15 ML OU SCH ×4 (04:17→22:58)
--- NOTE | 2019-07-01 04:38 | NUR ---
COMPLETE BATH GIVEN LINENS CHANGED, NO SKIN BREAKDOWN TO BUTTOCKS, ALLEVYN INTACT.
[2019-07-01] MEDS: METRONIDAZOLE 500MG/100ML BAG 100 ML IV SCH ×3 (05:40→22:57)
[2019-07-01] MEDS: POTASSIUM CHLORIDE 10MEQ/100ML 100 ML IV PRN (06:05)
[2019-07-01] MEDS: ACETYLCYSTEINE 20% 200MG/ML 4ML VIAL IH SCH ×4 (06:30→23:04)
[2019-07-01] MEDS: IPRATROPIUM/ALBUTEROL SULFATE 3 ML SOLUTION IH SCH ×4 (06:30→23:03)
--- NOTE | 2019-07-01 08:56 | NUR ---
PT CALM -PLACED ON CPAP TRIALS
[2019-07-01] MEDS: AMLODIPINE BESYLATE 5 MG TAB PO SCH (09:00)
[2019-07-01] MEDS: SPIRONOLACTONE 25 MG TAB PO SCH ×2 (09:00→20:56)
[2019-07-01] MEDS: ENOXAPARIN SODIUM 40 MG/0.4 ML SYRINGE SQ SCH (09:14)
[2019-07-01] MEDS: FAMOTIDINE/PF 20 MG/2 ML VIAL IV SCH ×2 (09:14→21:11)
[2019-07-01] MEDS: FLUCONAZOLE 400 MG/NS 200 ML 200 ML IV SCH (09:14)
[2019-07-01] MEDS: FAT EMULSIONS 20% 250ML 250 ML IV SCH (09:47)
[2019-07-01] MEDS: NEOMY SULF/BACITRAC ZN/POLY OINT 30GM TUBE TP SCH ×3 (09:48→21:11)
[2019-07-01 10:03] LABS: ABG BASE EXCESS 6.8 mmol/L (-2.0-3.0); ABG HCO3 30.1 mmol/L (21.0-28.0); ABG OXYGEN SATURATION 97.9 % (95.0-99.0); ABG PCO2 38 mmHg (35-48)
--- NOTE | 2019-07-01 10:03 | NUR ---
RD FOLLOW UP PT WITH HX OF CIRRHOSIS- UNDERWENT PARACENTESIS (4L REMOVAL) 06/30/19. HE REMAINS SEDATED AND INTUBATED. DECREASED SODIUM CONTENT IN THE TPN FORMULA - CONTINUE TPN AT 65ML/HR, MONITOR ELECTROLYTES AND BG. LABS REVIEWED. MEDS REVIEWED. RD RECOMMENDS TO CONTINUE TPN AND HYDRATION RECOMMENDATIONS ADJUST FLUSHES NEEDED RD WILL CONTINUE TO MONITOR AND FOLLOW UP Addendum: 07/01/19 at [address] Amended: Links added.
--- NOTE | 2019-07-01 10:20 | NUR ---
PT TOLERATED CPAP TRIAL WELL-NO DISTRESS. I HAVE HAD HIM PLACED BACK ON PREVIOUS SETTINGS TO ALLOW HIM TO REST UNTIL VOCATIONAL SERVICES SPECIALIST ROUNDS ARE MADE. WILL CPAP AGAIN WHEN MD IS HERE
[2019-07-01] MEDS: POTASSIUM CHLORIDE 20MEQ/100ML 100 ML IV PRN (11:39)
[2019-07-01] MEDS ORDERED: POTASSIUM PHOS 15 mMOL+NS250ML 250 ML IV ONE (12:15)
--- NOTE | 2019-07-01 13:22 | NUR ---
CPAP TRIALS RESTARTED
[2019-07-01] MEDS: NEUTRA-PHOS PACKET 1 EACH PO SCH ×2 (13:39→20:56)
[2019-07-01] MEDS ORDERED: SODIUM CHLORIDE 0.9% 500ML 500 ML IV SCH (14:00)
[2019-07-01 14:25] LABS: ABG BASE EXCESS 8.7 mmol/L (-2.0-3.0); ABG HCO3 32.1 mmol/L (21.0-28.0); ABG OXYGEN SATURATION 97.8 % (95.0-99.0); ABG PCO2 40 mmHg (35-48)
[2019-07-01] MEDS ORDERED: FUROSEMIDE 10 MG/ML 10ML VIAL ONE (14:56)
--- NOTE | 2019-07-01 15:11 | NUR ---
PT DISCOURAGED- DR RYAN HELD EXTUBATION FOR NOW . DR RYAN SPOKE TO PT AND TO FAMILY. WILL CONTINUE TO ASSESS DAILY
[2019-07-01] MEDS: PHARMACY COMMUNICATION MISC SCH ×2 (16:00→20:00)
[2019-07-01] MEDS ORDERED: FUROSEMIDE 10 MG/ML 10ML VIAL IVP ONE (16:10)
[2019-07-01] MEDS: SODIUM ACETATE IV NR ×5 (17:11)
[2019-07-01] MEDS: CALCIUM GLUC IV NR ×5 (17:11)
[2019-07-01] MEDS: POTASSIUM CHLORIDE IV NR ×5 (17:11)
[2019-07-01] MEDS: [UNRECOGNIZED DRUG - OTHER] IV NR ×5 (17:11)
[2019-07-01] MEDS ORDERED: ALBUMIN (HUMAN) 25% 50 ML IV SCH (21:00)
[2019-07-01] MEDS: LEVOFLOXACIN 500 MG/D5W 100 ML 100 ML IV SCH (21:16)
[2019-07-02] VITALS (24 sets, daily range): BP systolic 136–190; BP diastolic 78–111
[2019-07-02] MEDS: HYDROCORTISONE SOD SUCCINATE 100 MG/2 ML VIAL IV SCH ×5 (00:23→23:56)
[2019-07-02] MEDS: METOCLOPRAMIDE 10 MG/2 ML VIAL IVP SCH ×5 (00:23→23:56)
[2019-07-02] MEDS: INSULIN HUMULIN R 100 UNIT/ML 3ML SQ SCH ×5 (00:24→23:57)
[2019-07-02] MEDS: POTASSIUM CHLORIDE 20MEQ/100ML 100 ML IV PRN ×5 (01:43→19:59)
[2019-07-02] MEDS ORDERED: ALBUMIN (HUMAN) 25% 50 ML IV SCH ×2 (02:30→15:00)
[2019-07-02] MEDS: FUROSEMIDE 10 MG/ML 4ML VIAL IV SCH ×2 (03:33→16:26)
[2019-07-02] MEDS: PHARMACY COMMUNICATION MISC SCH ×7 (04:00→23:57)
[2019-07-02] MEDS: MEROPENEM 500 MG VIAL IVP SCH ×3 (06:10→20:06)
[2019-07-02] MEDS: ARTIFICAL TEARS SOL 15 ML OU SCH ×4 (06:29→22:12)
[2019-07-02] MEDS: METRONIDAZOLE 500MG/100ML BAG 100 ML IV SCH ×3 (06:29→22:04)
[2019-07-02] MEDS: ACETYLCYSTEINE 20% 200MG/ML 4ML VIAL IH SCH ×4 (06:32→23:02)
[2019-07-02] MEDS: IPRATROPIUM/ALBUTEROL SULFATE 3 ML SOLUTION IH SCH ×4 (06:32→23:02)
[2019-07-02 06:35] LABS: HEMATOCRIT 25.2 % (42-54); LYMPHOCYTES % (AUTO) 5.5 % (21.0-51.0); MEAN CORPUSCULAR HEMOGLOBIN 32.8 pg (27.0-33.0); MEAN CORPUSCULAR HGB CONC 32.1 g/dL (32.0-36.0); NEUTROPHILS % (AUTO) 89.7 % (40.0-77.0); PLATELET COUNT (AUTO) 282 K/uL (130-400); RED BLOOD CELL COUNT(AUTO) 2.47 MIL/uL (4.50-6.20); RED CELL DISTRIBUTION WIDTH 13.5 % (11.0-15.5); WHITE BLOOD COUNT (AUTO) 9.7 K/uL (4.8-10.8)
--- NOTE | 2019-07-02 06:36 | NUR ---
ABDOMINAL PAIN PATIENT COMPLAINT OF ABDOMINAL PAIN. ABDOMEN TAUT. ORDERS FOR CT ABDOMEN PELVIS AND NOTIFY SURGEON.
--- NOTE | 2019-07-02 06:43 | NUR ---
STATUS DR CORRAL NOTIFIED OF PATIENT COMPLAINT OF ABDOMINAL PAIN AND DISTENSION. ORDERS FOR KUB
--- NOTE | 2019-07-02 07:20 | NUR ---
PT ASYNCHRONOUS WITH VENTILATOR. ANXIOUS/RESTLESS/ ABDOMEN DISTENDED AND HE APPEARS UNCOMFORTABLE. I HAVE INCREASED VERSED TO 5MG/HR AND FENTANYL TO 100MCG/HR. PT DID NOT SLEEP LAST NIGHT
[2019-07-02 07:27] LABS: ALBUMIN 1.3 g/dL (3.5-5.0); CREATININE 1.2 mg/dL (0.5-1.5); MAGNESIUM 1.8 mg/dL (1.80-2.40); PHOSPHORUS 3.1 mg/dL (2.5-4.9)
[2019-07-02 07:33] LABS: POTASSIUM 2.7 mmol/L (3.5-5.1)
[2019-07-02] MEDS: SPIRONOLACTONE 25 MG TAB PO SCH ×2 (09:00→20:59)
[2019-07-02] MEDS: NEUTRA-PHOS PACKET 1 EACH PO SCH (09:00)
[2019-07-02] MEDS ORDERED: PHARMACY COMMUNICATION MISC SCH (10:00)
[2019-07-02] MEDS: FAMOTIDINE/PF 20 MG/2 ML VIAL IV SCH ×2 (10:12→21:12)
[2019-07-02] MEDS: FAT EMULSIONS 20% 250ML 250 ML IV SCH (10:12)
[2019-07-02] MEDS: FLUCONAZOLE 400 MG/NS 200 ML 200 ML IV SCH (10:12)
[2019-07-02] MEDS: ENOXAPARIN SODIUM 40 MG/0.4 ML SYRINGE SQ SCH (10:13)
[2019-07-02] MEDS: NEOMY SULF/BACITRAC ZN/POLY OINT 30GM TUBE TP SCH ×3 (10:22→21:00)
--- NOTE | 2019-07-02 10:25 | NUR ---
DR CORRAL-BEDSIDE ROUNDS MADE. EXAMINES PT. REVIEWS X-RAYS AND LABS. CANCELS CT ABDOMEN
[2019-07-02] MEDS: MAGNESIUM 2GM PREMIX 50ML 50 ML IV PRN (13:02)
[2019-07-02] MEDS: HYDRALAZINE HCL 20 MG/ML VIAL IV PRN (16:42)
[2019-07-02 16:43] LABS: ABG BASE EXCESS 9.7 mmol/L (-2.0-3.0); ABG HCO3 32.8 mmol/L (21.0-28.0); ABG OXYGEN SATURATION 97.8 % (95.0-99.0); ABG PCO2 39 mmHg (35-48)
[2019-07-02] MEDS: SODIUM ACETATE IV NR ×5 (17:15)
[2019-07-02] MEDS: [UNRECOGNIZED DRUG - OTHER] IV NR ×5 (17:15)
[2019-07-02] MEDS: CALCIUM GLUC IV NR ×5 (17:15)
[2019-07-02] MEDS: POTASSIUM CHLORIDE IV NR ×5 (17:15)
--- NOTE | 2019-07-02 17:30 | NUR ---
PLACED BACK ON AC SETTINGS. BECAME HYPERTENSIVE,TACHYPNEIC,TACHYCARDIC ON CPAP . LASTED 2HRS. DR RYAN MADE AWARE
[2019-07-02 17:40] LABS: MAGNESIUM 2.8 mg/dL (1.80-2.40); POTASSIUM 3.5 mmol/L (3.5-5.1)
[2019-07-02] MEDS: LEVOFLOXACIN 500 MG/D5W 100 ML 100 ML IV SCH (20:45)
[2019-07-02] MEDS: MIDAZOLAM 100MG-0.9% NS 100ML 100 ML IV PRN (23:54)
[2019-07-02] MEDS: FENTANYL 2500MCG+NS 250ML 250 ML IV PRN (23:54)
[2019-07-03] VITALS (26 sets, daily range): BP systolic 126–162; BP diastolic 81–103
[2019-07-03] MEDS: POTASSIUM CHLORIDE 20MEQ/100ML 100 ML IV PRN ×4 (00:18→23:15)
[2019-07-03] MEDS: FUROSEMIDE 10 MG/ML 4ML VIAL IV SCH ×2 (03:19→16:48)
[2019-07-03] MEDS: MEROPENEM 500 MG VIAL IVP SCH ×3 (03:19→19:55)
[2019-07-03] MEDS: PHARMACY COMMUNICATION MISC SCH ×2 (03:29→08:00)
[2019-07-03] MEDS: ARTIFICAL TEARS SOL 15 ML OU SCH ×4 (03:30→22:06)
[2019-07-03 04:25] LABS: BASOPHILS % (AUTO) 0.1 % (0.0-5.0); HEMATOCRIT 25.4 % (42-54); LYMPHOCYTES % (AUTO) 5.6 % (21.0-51.0); MEAN CORPUSCULAR HEMOGLOBIN 32.7 pg (27.0-33.0); MEAN CORPUSCULAR HGB CONC 32.3 g/dL (32.0-36.0); MEAN CORPUSCULAR VOLUME 101.2 fL (79-99); NEUTROPHILS % (AUTO) 89.4 % (40.0-77.0); PLATELET COUNT (AUTO) 266 K/uL (130-400); RED BLOOD CELL COUNT(AUTO) 2.51 MIL/uL (4.50-6.20); RED CELL DISTRIBUTION WIDTH 13.7 % (11.0-15.5); WHITE BLOOD COUNT (AUTO) 9.1 K/uL (4.8-10.8)
[2019-07-03 04:59] LABS: ALBUMIN 1.3 g/dL (3.5-5.0); BILIRUBIN,TOTAL 0.3 mg/dL (0.2-1.0); CREATININE 1.1 mg/dL (0.5-1.5); MAGNESIUM 2.5 mg/dL (1.80-2.40); PHOSPHORUS 3.1 mg/dL (2.5-4.9); POTASSIUM 3.2 mmol/L (3.5-5.1)
[2019-07-03] MEDS: METOCLOPRAMIDE 10 MG/2 ML VIAL IVP SCH ×4 (05:46→23:14)
[2019-07-03] MEDS: METRONIDAZOLE 500MG/100ML BAG 100 ML IV SCH ×3 (05:48→22:04)
[2019-07-03] MEDS: HYDROCORTISONE SOD SUCCINATE 100 MG/2 ML VIAL IV SCH ×4 (05:51→23:14)
[2019-07-03] MEDS: INSULIN HUMULIN R 100 UNIT/ML 3ML SQ SCH ×3 (06:16→17:36)
[2019-07-03] MEDS: IPRATROPIUM/ALBUTEROL SULFATE 3 ML SOLUTION IH SCH ×4 (06:21→23:16)
[2019-07-03] MEDS: ACETYLCYSTEINE 20% 200MG/ML 4ML VIAL IH SCH ×4 (06:21→23:17)
--- NOTE | 2019-07-03 08:20 | NUR ---
SPONTANEOUS BREATHING TRIALS RESTARTED
[2019-07-03] MEDS: FAMOTIDINE/PF 20 MG/2 ML VIAL IV SCH ×2 (08:56→19:57)
[2019-07-03] MEDS: FLUCONAZOLE 400 MG/NS 200 ML 200 ML IV SCH (08:57)
[2019-07-03] MEDS: ENOXAPARIN SODIUM 40 MG/0.4 ML SYRINGE SQ SCH (08:57)
[2019-07-03] MEDS: [UNRECOGNIZED DRUG - OTHER] IV NR ×5 (09:00)
[2019-07-03] MEDS: POTASSIUM CHLORIDE IV NR ×5 (09:00)
[2019-07-03] MEDS: SODIUM ACETATE IV NR ×5 (09:00)
[2019-07-03] MEDS: CALCIUM GLUC IV NR ×5 (09:00)
[2019-07-03] MEDS: SPIRONOLACTONE 25 MG TAB PO SCH ×2 (09:00→20:10)
[2019-07-03] MEDS: NEOMY SULF/BACITRAC ZN/POLY OINT 30GM TUBE TP SCH ×3 (09:01→20:10)
--- NOTE | 2019-07-03 09:14 | NUR ---
PT CONTINUES WITH RAPID SHALLOW BREATHING PATTERN- PLACED BACK ON AC SETTINGS
[2019-07-03 09:15] LABS: ABG BASE EXCESS 6.3 mmol/L (-2.0-3.0); ABG HCO3 30.3 mmol/L (21.0-28.0); ABG OXYGEN SATURATION 97.7 % (95.0-99.0); ABG PCO2 41 mmHg (35-48)
[2019-07-03] MEDS: FAT EMULSIONS 20% 250ML 250 ML IV SCH (11:49)
[2019-07-03] MEDS: DEXTROSE 5%-WATER 1,000 ML IV SCH (13:40)
[2019-07-03] MEDS: ACETAZOLAMIDE SODIUM 500 MG VIAL IV SCH (13:40)
--- NOTE | 2019-07-03 14:30 | NUR ---
DR CARLOS FALCON MADE-UPDATED ON STATUS/MEDS/WEANING/XRAYS/LAB Addendum: 07/03/19 at 1533 by JARON BONILLA RN RN DISCUSSED NEED FOR TRACHEOSTOMY WITH PATIENT - AT THIS TIME PT REFUSES AND WANTS TO THINK IT OVER
--- NOTE | 2019-07-03 15:33 | NUR ---
TRACHEOSTOMY EDUCATION GIVEN VERBALLY TO PATIENT AND FAMILY. COLOSTOMY CARE DONE- APPLIANCES CHANGED
[2019-07-03] MEDS: HYDRALAZINE HCL 20 MG/ML VIAL IV PRN ×2 (16:49→23:15)
[2019-07-03] MEDS: LEVOFLOXACIN 500 MG/D5W 100 ML 100 ML IV SCH (20:10)
[2019-07-03] MEDS ORDERED: ACETAZOLAMIDE SODIUM 500 MG VIAL IV SCH (21:00)
[2019-07-04] VITALS (25 sets, daily range): BP systolic 102–171; BP diastolic 64–105
[2019-07-04] MEDS: POTASSIUM CHLORIDE 20MEQ/100ML 100 ML IV PRN ×7 (00:28→22:28)
[2019-07-04] MEDS: ACETAZOLAMIDE SODIUM 500 MG VIAL IV SCH (01:43)
[2019-07-04] MEDS: FUROSEMIDE 10 MG/ML 4ML VIAL IV SCH ×3 (04:16→22:23)
[2019-07-04] MEDS: MEROPENEM 500 MG VIAL IVP SCH ×3 (04:17→20:29)
[2019-07-04] MEDS: ARTIFICAL TEARS SOL 15 ML OU SCH ×4 (04:28→22:27)
--- NOTE | 2019-07-04 05:00 | NUR ---
TRACHEOSTOMY PATIENT AND SPOUSE HAVE DECIDED TO PROCEED WITH TRACHEOSTOMY
[2019-07-04] MEDS: METOCLOPRAMIDE 10 MG/2 ML VIAL IVP SCH ×3 (05:32→17:41)
[2019-07-04] MEDS: HYDROCORTISONE SOD SUCCINATE 100 MG/2 ML VIAL IV SCH ×3 (05:32→17:41)
[2019-07-04] MEDS: METRONIDAZOLE 500MG/100ML BAG 100 ML IV SCH ×3 (05:32→22:26)
[2019-07-04] MEDS: INSULIN HUMULIN R 100 UNIT/ML 3ML SQ SCH ×4 (06:00→17:38)
[2019-07-04] MEDS: DEXTROSE 5%-WATER 1,000 ML IV SCH ×2 (06:27→10:58)
[2019-07-04] MEDS: ACETYLCYSTEINE 20% 200MG/ML 4ML VIAL IH SCH ×3 (06:30→18:19)
[2019-07-04] MEDS: IPRATROPIUM/ALBUTEROL SULFATE 3 ML SOLUTION IH SCH ×3 (06:30→18:19)
[2019-07-04 06:33] LABS: BASOPHILS % (AUTO) 0.1 % (0.0-5.0); HEMATOCRIT 29.2 % (42-54); LYMPHOCYTES % (AUTO) 7.8 % (21.0-51.0); MEAN CORPUSCULAR HEMOGLOBIN 32.3 pg (27.0-33.0); MEAN CORPUSCULAR HGB CONC 32.2 g/dL (32.0-36.0); MEAN CORPUSCULAR VOLUME 100.3 fL (79-99); NEUTROPHILS % (AUTO) 85.9 % (40.0-77.0); PLATELET COUNT (AUTO) 301 K/uL (130-400); RED BLOOD CELL COUNT(AUTO) 2.91 MIL/uL (4.50-6.20); RED CELL DISTRIBUTION WIDTH 13.7 % (11.0-15.5); WHITE BLOOD COUNT (AUTO) 8.9 K/uL (4.8-10.8)
[2019-07-04 06:55] LABS: CREATININE 1.2 mg/dL (0.5-1.5); MAGNESIUM 1.9 mg/dL (1.80-2.40); PHOSPHORUS 3.9 mg/dL (2.5-4.9); POTASSIUM 3.1 mmol/L (3.5-5.1)
[2019-07-04] MEDS: MIDAZOLAM 100MG-0.9% NS 100ML 100 ML IV PRN (06:57)
[2019-07-04] MEDS: MAGNESIUM 2GM PREMIX 50ML 50 ML IV PRN (07:40)
[2019-07-04] MEDS: FLUCONAZOLE 400 MG/NS 200 ML 200 ML IV SCH (08:00)
[2019-07-04] MEDS: SPIRONOLACTONE 25 MG TAB PO SCH ×2 (08:00→20:29)
[2019-07-04] MEDS: FAMOTIDINE/PF 20 MG/2 ML VIAL IV SCH ×2 (08:00→20:30)
[2019-07-04] MEDS: NEOMY SULF/BACITRAC ZN/POLY OINT 30GM TUBE TP SCH ×3 (08:01→20:30)
[2019-07-04] MEDS: FAT EMULSIONS 20% 250ML 250 ML IV SCH (09:31)
--- NOTE | 2019-07-04 09:31 | NUR ---
TPN AND INTRALIPIDS ON HOLD, PER MD
[2019-07-04 09:53] LABS: INR 0.95 (0.85-1.15)
[2019-07-04] MEDS ORDERED: IPRATROPIUM 0.5 MG/2.5 ML INH IH ONE (10:39)
[2019-07-04] MEDS ORDERED: ALBUTEROL SULFATE 0.083% 2.5 MG/3 ML INH IH ONE (10:39)
[2019-07-04] MEDS: FENTANYL 2500MCG+NS 250ML 250 ML IV PRN (11:41)
[2019-07-04] MEDS ORDERED: POTASSIUM CHLORIDE 20 MEQ/100 ML BAG IV SCH (13:30)
[2019-07-04 15:44] LABS: MAGNESIUM 2.4 mg/dL (1.80-2.40); POTASSIUM 3.3 mmol/L (3.5-5.1)
[2019-07-04] MEDS: ENOXAPARIN SODIUM 40 MG/0.4 ML SYRINGE SQ SCH (15:53)
[2019-07-04] MEDS: [UNRECOGNIZED DRUG - OTHER] IV NR ×5 (17:15)
[2019-07-04] MEDS: SODIUM ACETATE IV NR ×5 (17:15)
[2019-07-04] MEDS: CALCIUM GLUC IV NR ×5 (17:15)
[2019-07-04] MEDS: POTASSIUM CHLORIDE IV NR ×5 (17:15)
[2019-07-04] MEDS: LEVOFLOXACIN 500 MG/D5W 100 ML 100 ML IV SCH (20:29)
[2019-07-05] VITALS (25 sets, daily range): BP systolic 107–176; BP diastolic 76–112
[2019-07-05] MEDS: IPRATROPIUM/ALBUTEROL SULFATE 3 ML SOLUTION IH SCH ×5 (00:23→23:46)
[2019-07-05] MEDS: ACETYLCYSTEINE 20% 200MG/ML 4ML VIAL IH SCH ×3 (00:24→11:06)
[2019-07-05] MEDS: HYDROCORTISONE SOD SUCCINATE 100 MG/2 ML VIAL IV SCH ×5 (00:38→23:03)
[2019-07-05] MEDS: METOCLOPRAMIDE 10 MG/2 ML VIAL IVP SCH ×5 (00:38→23:03)
[2019-07-05] MEDS: INSULIN HUMULIN R 100 UNIT/ML 3ML SQ SCH ×4 (00:50→17:58)
[2019-07-05] MEDS: POTASSIUM CHLORIDE 20MEQ/100ML 100 ML IV PRN ×5 (00:55→23:05)
[2019-07-05 04:10] LABS: HEMATOCRIT 27.6 % (42-54); MEAN CORPUSCULAR HEMOGLOBIN 32.1 pg (27.0-33.0); MEAN CORPUSCULAR HGB CONC 31.9 g/dL (32.0-36.0); MEAN CORPUSCULAR VOLUME 100.7 fL (79-99); PLATELET COUNT (AUTO) 325 K/uL (130-400); RED BLOOD CELL COUNT(AUTO) 2.74 MIL/uL (4.50-6.20); RED CELL DISTRIBUTION WIDTH 13.4 % (11.0-15.5); WHITE BLOOD COUNT (AUTO) 8.2 K/uL (4.8-10.8)
[2019-07-05] MEDS: ARTIFICAL TEARS SOL 15 ML OU SCH ×4 (04:15→20:16)
[2019-07-05 05:01] LABS: ALBUMIN 1.4 g/dL (3.5-5.0); BILIRUBIN,TOTAL 0.4 mg/dL (0.2-1.0); CREATININE 1.1 mg/dL (0.5-1.5); MAGNESIUM 2.2 mg/dL (1.80-2.40); PHOSPHORUS 3.3 mg/dL (2.5-4.9); POTASSIUM 3.5 mmol/L (3.5-5.1); TOTAL PROTEIN, SERUM 5.5 g/dL (6.0-8.3)
[2019-07-05] MEDS: FUROSEMIDE 10 MG/ML 4ML VIAL IV SCH ×4 (06:15→23:03)
[2019-07-05] MEDS: MEROPENEM 500 MG VIAL IVP SCH ×3 (06:15→20:14)
[2019-07-05 08:04] LABS: INR 0.96 (0.85-1.15); PARTIAL THROMBOPLASTIN TIME 27.5 SEC (26.3-35.5); PROTHROMBIN TIME 10.1 SEC (9.6-11.6)
[2019-07-05] MEDS: FAMOTIDINE/PF 20 MG/2 ML VIAL IV SCH ×2 (09:40→20:14)
[2019-07-05] MEDS: SPIRONOLACTONE 25 MG TAB PO SCH ×2 (09:40→20:13)
[2019-07-05] MEDS: FLUCONAZOLE 400 MG/NS 200 ML 200 ML IV SCH (09:40)
[2019-07-05] MEDS: NEOMY SULF/BACITRAC ZN/POLY OINT 30GM TUBE TP SCH ×3 (09:41→20:16)
[2019-07-05] MEDS: ENOXAPARIN SODIUM 40 MG/0.4 ML SYRINGE SQ SCH (09:41)
--- NOTE | 2019-07-05 10:00 | NUR ---
U/S GD 8FR CATHETER PLACEMENT FOR PARACENTESIS. PROCEDURE PERFORMED AT BEDSIDE BY DR Tyler SOTO. PUNCTURE SITE LLQ. 8FR PIGTAIL CATHETER PLACED TO LLQ AND SUTURED IN PLACE. STAY-FIX DRESSING APPLIED. TOTAL REMOVED 5.4 LITERS OF CLEAR YELLOW FLUID. SPECIMEN SENT TO LAB. END OF PROCEDURE AT 0930. NO BLEEDING NOTED. REPORT GIVEN TO Ping WHALEN RN AND PATIENT RECOVERED IN ROOM. ALBUMIN 25% ORDERED PER [facility] [place] [facility].
[2019-07-05] MEDS: PHARMACY COMMUNICATION MISC SCH ×4 (10:30→22:30)
[2019-07-05] MEDS ORDERED: ALBUMIN (HUMAN) 25% 200 ML IV PRN (14:00)
[2019-07-05] MEDS: HYDRALAZINE HCL 20 MG/ML VIAL IV PRN (14:54)
[2019-07-05 15:18] LABS: APPEARANCE BODY FLUID CLEAR (CLEAR); COLOR,BODY FLUID LT YELLOW (LT YELLOW); SPECIMENTYPE,BODY FLUID ASCITES; TOTAL VOLUME,BODY FLUID 5400 mL
[2019-07-05 15:19] LABS: BODY FLUID RBC 153 /cu. mm.; BODY FLUID WBC 136 /cu. mm.
[2019-07-05 15:37] LABS: BF LYMPHOCYTE 5 %; BF MESOTHELIAL 2 %; BF MONOCYTE 6 %
--- NOTE | 2019-07-05 16:35 | NUR ---
C consult Patient assessed as ordered. Spoke with patient's nurse, Selvin SINHA, who stated that patient does not have any breakdown to coccyx and an allevyn life foam is in use. Nurse reports that abdominal (surgical) wound is being managed by Dr. Fulton; and wound care has already been done. Nurse also states that patient has breakdown to left lateral trunk/flank area and to left hip. These sites were evaluated. [facility] in agreement with current treatment of barrier cream to these sites. Unable to assess sacrum/back as patient reports it is too painful. May reconsult [facility] as needed. Addendum: 07/05/19 at 1707 by JESSY LI RN/JAVIER Amended: Links added.
[2019-07-05] MEDS ORDERED: CALCIUM GLUC IV SCH ×5 (16:45)
[2019-07-05] MEDS ORDERED: [UNRECOGNIZED DRUG - OTHER] IV SCH ×5 (16:45)
[2019-07-05] MEDS ORDERED: ALBUMIN (HUMAN) 25% 100 ML IV ONE (16:45)
[2019-07-05] MEDS ORDERED: SODIUM ACETATE IV SCH ×5 (16:45)
[2019-07-05] MEDS ORDERED: POTASSIUM CHLORIDE IV SCH ×5 (16:45)
[2019-07-05] MEDS: METOPROLOL TARTRATE 1 MG/ML 5ML VIAL IV SCH ×2 (17:20→23:02)
[2019-07-05] MEDS: FAT EMULSIONS 20% 250ML 250 ML IV SCH (22:23)
[2019-07-06] VITALS (23 sets, daily range): BP systolic 121–178; BP diastolic 75–109
[2019-07-06] MEDS: PHARMACY COMMUNICATION MISC SCH ×7 (01:36→22:54)
[2019-07-06] MEDS: INSULIN HUMULIN R 100 UNIT/ML 3ML SQ SCH ×4 (01:41→17:48)
[2019-07-06 03:49] LABS: ABG BASE EXCESS 1.9 mmol/L (-2.0-3.0); ABG OXYGEN SATURATION 98.3 % (95.0-99.0); ABG PCO2 31 mmHg (35-48)
[2019-07-06 04:29] LABS: BASOPHILS % (AUTO) 0.2 % (0.0-5.0); EOSINOPHILS % (AUTO) 0.4 % (0.0-8.0); HEMATOCRIT 29.6 % (42-54); LYMPHOCYTES % (AUTO) 4.9 % (21.0-51.0); MEAN CORPUSCULAR HEMOGLOBIN 34.3 pg (27.0-33.0); MEAN CORPUSCULAR HGB CONC 34.5 g/dL (32.0-36.0); MEAN CORPUSCULAR VOLUME 99.7 fL (79-99); NEUTROPHILS % (AUTO) 90.2 % (40.0-77.0); PLATELET COUNT (AUTO) 360 K/uL (130-400); RED BLOOD CELL COUNT(AUTO) 2.97 MIL/uL (4.50-6.20); RED CELL DISTRIBUTION WIDTH 13.6 % (11.0-15.5); WHITE BLOOD COUNT (AUTO) 11.9 K/uL (4.8-10.8)
[2019-07-06 05:08] LABS: ALBUMIN 1.9 g/dL (3.5-5.0); BILIRUBIN,TOTAL 0.4 mg/dL (0.2-1.0); PHOSPHORUS 2.6 mg/dL (2.5-4.9); POTASSIUM 3.4 mmol/L (3.5-5.1)
[2019-07-06] MEDS: HYDROCORTISONE SOD SUCCINATE 100 MG/2 ML VIAL IV SCH ×5 (05:09→23:55)
[2019-07-06] MEDS: METOPROLOL TARTRATE 1 MG/ML 5ML VIAL IV SCH ×4 (05:09→23:06)
[2019-07-06] MEDS: METOCLOPRAMIDE 10 MG/2 ML VIAL IVP SCH ×4 (05:09→23:04)
[2019-07-06] MEDS: MEROPENEM 500 MG VIAL IVP SCH ×3 (05:09→20:35)
[2019-07-06] MEDS: FUROSEMIDE 10 MG/ML 4ML VIAL IV SCH ×4 (05:10→23:04)
[2019-07-06] MEDS: ARTIFICAL TEARS SOL 15 ML OU SCH ×4 (05:10→20:35)
[2019-07-06] MEDS: IPRATROPIUM/ALBUTEROL SULFATE 3 ML SOLUTION IH SCH ×4 (06:26→23:23)
[2019-07-06] MEDS: SPIRONOLACTONE 25 MG TAB PO SCH ×2 (09:54→20:35)
[2019-07-06] MEDS: ENOXAPARIN SODIUM 40 MG/0.4 ML SYRINGE SQ SCH (09:55)
[2019-07-06] MEDS: FAT EMULSIONS 20% 250ML 250 ML IV SCH ×2 (09:55→10:00)
[2019-07-06] MEDS: FLUCONAZOLE 400 MG/NS 200 ML 200 ML IV SCH (09:55)
[2019-07-06] MEDS: NEOMY SULF/BACITRAC ZN/POLY OINT 30GM TUBE TP SCH ×3 (09:59→20:36)
[2019-07-06] MEDS: FAMOTIDINE/PF 20 MG/2 ML VIAL IV SCH ×2 (09:59→20:35)
[2019-07-06] MEDS: POTASSIUM CHLORIDE 20MEQ/100ML 100 ML IV PRN ×4 (09:59→23:04)
--- NOTE | 2019-07-06 10:01 | NUR ---
notification to Kirstin PA Spoke to Johann Gonzales PA for Dr. Fulton on Dr. Su's recommendations for Trach and PEG. as per PA he will talk to Dr. Fulton and hopefully Dr. Fulton can stop by later on today to speak to family and for further orders.
--- NOTE | 2019-07-06 12:52 | NUR ---
RD FOLLOW UP PT REMAINS INTUBATED AT THIS TIME. EXECUTIVE TALENT ACQUISITION CONSULTANT MAKING RECOMMENDATIONS FOR PEG TUBE PLACEMENT- PENDING. S/P PARACENTESIS. STARTED TUBE FEEDING USING VITAL AF 1.2 AT 10ML/HR- PT IS TOLERATING WELL, 0ML RESIDUALS NOTED. LBM: 07/05; LOOSE STOOL NOTED. LABS REVIEWED. MEDS REVIEWED. HIP SKIN TEAR NOTED. TPN IN PLACE AT 65ML/HR. RD RECOMMENDS TO D/C FAT EMULSION VIA PICC DUE TO ELEVATED TG LEVELS INCREASE VITAL AF TO 15ML/HR- MONITOR RESIDUALS- INCREASE BY 5ML/HR EVERY 5 HRS TOLERATED TAPER TPN WHEN PT IS TOLERATING VITAL AT 25ML/HR D/C TPN WHEN PT IS TOLERATING VITAL AT 35ML/HR VITAL AF GOAL RATE IS 60ML/HR- FLUSH WITH 320ML Q6HRS RD WILL CONTINUE TO MONITOR AND FOLLOW UP, THANK YOU. Addendum: 07/06/19 at [address] Amended: Links added.
[2019-07-06] MEDS: FENTANYL 2500MCG+NS 250ML 250 ML IV PRN (13:26)
[2019-07-06] MEDS ORDERED: POTASSIUM CHLORIDE IV SCH ×5 (17:45)
[2019-07-06] MEDS ORDERED: [UNRECOGNIZED DRUG - OTHER] IV SCH ×5 (17:45)
[2019-07-06] MEDS ORDERED: CALCIUM GLUC IV SCH ×5 (17:45)
[2019-07-06] MEDS ORDERED: SODIUM ACETATE IV SCH ×5 (17:45)
[2019-07-07] VITALS (49 sets, daily range): BP systolic 99–154; BP diastolic 64–90
[2019-07-07] MEDS: INSULIN HUMULIN R 100 UNIT/ML 3ML SQ SCH ×4 (00:24→17:08)
[2019-07-07] MEDS: PHARMACY COMMUNICATION MISC SCH ×6 (03:46→23:17)
[2019-07-07] MEDS: MEROPENEM 500 MG VIAL IVP SCH ×3 (04:00→20:28)
[2019-07-07 04:10] LABS: BASOPHILS % (AUTO) 0.1 % (0.0-5.0); HEMATOCRIT 27.9 % (42-54); LYMPHOCYTES % (AUTO) 5.6 % (21.0-51.0); MEAN CORPUSCULAR HEMOGLOBIN 32.2 pg (27.0-33.0); MEAN CORPUSCULAR HGB CONC 31.9 g/dL (32.0-36.0); MEAN CORPUSCULAR VOLUME 101.1 fL (79-99); MONOCYTES % (AUTO) 3.7 % (3.0-13.0); NEUTROPHILS % (AUTO) 89.2 % (40.0-77.0); PLATELET COUNT (AUTO) 302 K/uL (130-400); POTASSIUM 4.2 mmol/L (3.5-5.1); RED BLOOD CELL COUNT(AUTO) 2.76 MIL/uL (4.50-6.20); RED CELL DISTRIBUTION WIDTH 13.7 % (11.0-15.5); WHITE BLOOD COUNT (AUTO) 11.8 K/uL (4.8-10.8)
[2019-07-07 04:14] LABS: INR 0.89 (0.85-1.15); MAGNESIUM 1.9 mg/dL (1.80-2.40); PARTIAL THROMBOPLASTIN TIME 29.6 SEC (26.3-35.5); PHOSPHORUS 2.5 mg/dL (2.5-4.9); PROTHROMBIN TIME 9.4 SEC (9.6-11.6)
[2019-07-07] MEDS: ARTIFICAL TEARS SOL 15 ML OU SCH ×4 (04:15→20:31)
[2019-07-07] MEDS: METOPROLOL TARTRATE 1 MG/ML 5ML VIAL IV SCH ×4 (06:20→23:16)
[2019-07-07] MEDS: FUROSEMIDE 10 MG/ML 4ML VIAL IV SCH ×4 (06:20→23:16)
[2019-07-07] MEDS: METOCLOPRAMIDE 10 MG/2 ML VIAL IVP SCH ×4 (06:21→23:16)
[2019-07-07] MEDS: HYDROCORTISONE SOD SUCCINATE 100 MG/2 ML VIAL IV SCH ×4 (06:21→23:15)
[2019-07-07] MEDS: IPRATROPIUM/ALBUTEROL SULFATE 3 ML SOLUTION IH SCH ×3 (06:25→18:35)
[2019-07-07] MEDS: ENOXAPARIN SODIUM 40 MG/0.4 ML SYRINGE SQ SCH (09:00)
[2019-07-07] MEDS: SPIRONOLACTONE 25 MG TAB PO SCH ×2 (09:03→21:00)
[2019-07-07] MEDS: FAMOTIDINE/PF 20 MG/2 ML VIAL IV SCH ×2 (09:03→20:28)
[2019-07-07] MEDS: MAGNESIUM 2GM PREMIX 50ML 50 ML IV PRN (09:04)
[2019-07-07] MEDS: FLUCONAZOLE 400 MG/NS 200 ML 200 ML IV SCH (09:04)
[2019-07-07] MEDS: NEOMY SULF/BACITRAC ZN/POLY OINT 30GM TUBE TP SCH ×3 (09:12→20:31)
[2019-07-07] MEDS: FAT EMULSIONS 20% 250ML 250 ML IV SCH (10:00)
[2019-07-07] MEDS ORDERED: PROPOFOL 10 MG/ML 20ML VIAL IV ONE (13:58)
[2019-07-07] MEDS ORDERED: LIDOCAINE PF 2% 5ML ABBOJECT ONE (13:58)
[2019-07-07] MEDS ORDERED: ROCURONIUM 10MG/1ML SYR 10 MG/ML ML ONE (13:58)
[2019-07-07] MEDS ORDERED: FENTANYL CITRATE PF 50 MCG/1 ML 2ML VIAL ONE (13:59)
--- NOTE | 2019-07-07 14:37 | NUR ---
PATIENT TAKEN DOWN FOR TRACHEOSTOMY PLACEMENT
[2019-07-07] MEDS ORDERED: EPHEDRINE SULFATE 50 MG/ML AMPULE ONE (14:47)
[2019-07-07] MEDS ORDERED: MIDAZOLAM HCL 1 MG/ML 2ML VIAL ONE (15:17)
[2019-07-07] MEDS ORDERED: CALCIUM GLUC IV SCH ×5 (16:45)
[2019-07-07] MEDS ORDERED: POTASSIUM CHLORIDE IV SCH ×5 (16:45)
[2019-07-07] MEDS ORDERED: [UNRECOGNIZED DRUG - OTHER] IV SCH ×5 (16:45)
[2019-07-07] MEDS ORDERED: SODIUM ACETATE IV SCH ×5 (16:45)
[2019-07-07] MEDS: POTASSIUM CHLORIDE 20MEQ/100ML 100 ML IV PRN ×2 (20:33→23:15)
[2019-07-07] MEDS ORDERED: SODIUM CHLORIDE 0.9% 1000ML 1,000 ML IV ONE (20:49)
[2019-07-08] VITALS (35 sets, daily range): BP systolic 118–150; BP diastolic 53–97
[2019-07-08] MEDS: INSULIN HUMULIN R 100 UNIT/ML 3ML SQ SCH ×4 (00:56→17:32)
[2019-07-08] MEDS: IPRATROPIUM/ALBUTEROL SULFATE 3 ML SOLUTION IH SCH ×5 (01:47→23:17)
[2019-07-08 04:12] LABS: BASOPHILS % (AUTO) 0.1 % (0.0-5.0); HEMATOCRIT 26.5 % (42-54); LYMPHOCYTES % (AUTO) 6.4 % (21.0-51.0); MEAN CORPUSCULAR HGB CONC 32.1 g/dL (32.0-36.0); MEAN CORPUSCULAR VOLUME 99.6 fL (79-99); NEUTROPHILS % (AUTO) 87.1 % (40.0-77.0); PLATELET COUNT (AUTO) 332 K/uL (130-400); RED BLOOD CELL COUNT(AUTO) 2.66 MIL/uL (4.50-6.20); RED CELL DISTRIBUTION WIDTH 13.7 % (11.0-15.5); WHITE BLOOD COUNT (AUTO) 10.9 K/uL (4.8-10.8)
[2019-07-08 04:38] LABS: ALBUMIN 1.3 g/dL (3.5-5.0); BILIRUBIN,TOTAL 0.4 mg/dL (0.2-1.0); MAGNESIUM 2.1 mg/dL (1.80-2.40); PHOSPHORUS 3.1 mg/dL (2.5-4.9); TOTAL PROTEIN, SERUM 5.3 g/dL (6.0-8.3)
[2019-07-08] MEDS: PHARMACY COMMUNICATION MISC SCH (05:50)
[2019-07-08] MEDS: METOCLOPRAMIDE 10 MG/2 ML VIAL IVP SCH ×4 (05:59→23:19)
[2019-07-08] MEDS: MEROPENEM 500 MG VIAL IVP SCH ×2 (05:59→12:27)
[2019-07-08] MEDS: FUROSEMIDE 10 MG/ML 4ML VIAL IV SCH ×2 (05:59→15:55)
[2019-07-08] MEDS: ARTIFICAL TEARS SOL 15 ML OU SCH ×4 (06:00→20:56)
[2019-07-08] MEDS: METOPROLOL TARTRATE 1 MG/ML 5ML VIAL IV SCH ×4 (06:00→23:20)
[2019-07-08] MEDS: HYDROCORTISONE SOD SUCCINATE 100 MG/2 ML VIAL IV SCH ×2 (06:00→17:25)
[2019-07-08] MEDS ORDERED: CALCIUM GLUC IV SCH ×10 (09:00→20:30)
[2019-07-08] MEDS ORDERED: SODIUM ACETATE IV SCH ×10 (09:00→20:30)
[2019-07-08] MEDS ORDERED: [UNRECOGNIZED DRUG - OTHER] IV SCH ×10 (09:00→20:30)
[2019-07-08] MEDS ORDERED: POTASSIUM CHLORIDE IV SCH ×10 (09:00→20:30)
[2019-07-08] MEDS: FLUCONAZOLE 400 MG/NS 200 ML 200 ML IV SCH (09:54)
[2019-07-08] MEDS: SPIRONOLACTONE 25 MG TAB PO SCH ×2 (09:54→20:55)
[2019-07-08] MEDS: ENOXAPARIN SODIUM 40 MG/0.4 ML SYRINGE SQ SCH (09:54)
[2019-07-08] MEDS: FAMOTIDINE/PF 20 MG/2 ML VIAL IV SCH (09:54)
[2019-07-08] MEDS: NEOMY SULF/BACITRAC ZN/POLY OINT 30GM TUBE TP SCH ×3 (09:55→20:56)
--- NOTE | 2019-07-08 14:23 | NUR ---
RD FOLLOW UP Tube feeding initiated this AM @10mls/hr as per RN. Recommend to advance tube feedings to goal, as tolerated. Rec to wean/taper off TPN as medically feasible. RD to continue to monitor. LBM 07/08/19. Pt monitored labs: WBC 10.9, RBC 2.66, Hgb 8.5, Hct 26.5, Na 147, BUN 44, BG 176, Ca 8.0, AST 51, Alb 1.3. RD to continue to monitor. Please notify RD as nutritional concerns arise. Thank you. Addendum: 07/08/19 at [address] Amended: Links added.
[2019-07-08] MEDS: HYDROMORPHONE 1 MG/1 ML AMP IVP PRN ×2 (16:32→21:00)
[2019-07-08] MEDS ORDERED: PHARMACY COMMUNICATION MISC SCH (23:15)
[2019-07-09] VITALS (45 sets, daily range): BP systolic 118–156; BP diastolic 81–105
[2019-07-09] MEDS: CEFEPIME HCL 2 GM VIAL IVP SCH ×4 (00:36→22:02)
[2019-07-09] MEDS: INSULIN HUMULIN R 100 UNIT/ML 3ML SQ SCH ×4 (00:41→17:47)
[2019-07-09 03:59] LABS: HEMATOCRIT 28.6 % (42-54); MEAN CORPUSCULAR HEMOGLOBIN 31.1 pg (27.0-33.0); MEAN CORPUSCULAR HGB CONC 30.8 g/dL (32.0-36.0); MEAN CORPUSCULAR VOLUME 101.1 fL (79-99); PLATELET COUNT (AUTO) 424 K/uL (130-400); RED BLOOD CELL COUNT(AUTO) 2.83 MIL/uL (4.50-6.20); RED CELL DISTRIBUTION WIDTH 13.6 % (11.0-15.5); WHITE BLOOD COUNT (AUTO) 11.6 K/uL (4.8-10.8)
[2019-07-09] MEDS: ARTIFICAL TEARS SOL 15 ML OU SCH ×4 (04:15→21:59)
[2019-07-09 04:34] LABS: ALBUMIN 1.4 g/dL (3.5-5.0); BILIRUBIN,TOTAL 0.5 mg/dL (0.2-1.0); CREATININE 0.9 mg/dL (0.5-1.5); MAGNESIUM 2.3 mg/dL (1.80-2.40); PHOSPHORUS 2.7 mg/dL (2.5-4.9); POTASSIUM 3.7 mmol/L (3.5-5.1); TOTAL PROTEIN, SERUM 5.7 g/dL (6.0-8.3)
[2019-07-09] MEDS: FUROSEMIDE 10 MG/ML 4ML VIAL IV SCH ×2 (05:03→17:02)
[2019-07-09] MEDS: HYDROCORTISONE SOD SUCCINATE 100 MG/2 ML VIAL IV SCH ×2 (05:04→17:04)
[2019-07-09] MEDS: METOPROLOL TARTRATE 1 MG/ML 5ML VIAL IV SCH ×4 (05:04→22:02)
[2019-07-09] MEDS: METOCLOPRAMIDE 10 MG/2 ML VIAL IVP SCH ×4 (05:04→23:25)
[2019-07-09] MEDS: IPRATROPIUM/ALBUTEROL SULFATE 3 ML SOLUTION IH SCH ×4 (07:33→23:46)
[2019-07-09] MEDS: FLUCONAZOLE 400 MG/NS 200 ML 200 ML IV SCH (09:13)
[2019-07-09] MEDS: ENOXAPARIN SODIUM 40 MG/0.4 ML SYRINGE SQ SCH (09:29)
[2019-07-09] MEDS: NEOMY SULF/BACITRAC ZN/POLY OINT 30GM TUBE TP SCH ×3 (09:31→22:00)
[2019-07-09] MEDS: SPIRONOLACTONE 25 MG TAB PO SCH ×2 (09:31→21:58)
[2019-07-09] MEDS: HYDROMORPHONE 1 MG/1 ML AMP IVP PRN (10:06)
[2019-07-09] MEDS: POTASSIUM CHLORIDE 20MEQ/100ML 100 ML IV PRN (17:12)
[2019-07-09] MEDS ORDERED: CALCIUM GLUC IV SCH ×5 (17:45)
[2019-07-09] MEDS ORDERED: [UNRECOGNIZED DRUG - OTHER] IV SCH ×5 (17:45)
[2019-07-09] MEDS ORDERED: POTASSIUM CHLORIDE IV SCH ×5 (17:45)
[2019-07-09] MEDS ORDERED: SODIUM ACETATE IV SCH ×5 (17:45)
--- NOTE | 2019-07-09 20:00 | NUR ---
ASSESSMENT PT RESTING QUIETLY IN BED, AAO, COOPERATIVE,CURRENTLY DENIES ANY PAIN, FAMILY AT BEDSIDE. IV FLUIDS INFUSING WITHOUT DIFFICULTY. ASSESSMENT COMPLETED, SEE FLOW. PARAMETERS REVIEWED ON BEDSIDE MONITOR AND ADJUSTED ACCORDINGLY. CALLBELL REVIEWED AND WITHIN REACH.
[2019-07-10] VITALS (50 sets, daily range): BP systolic 65–138; BP diastolic 41–84
[2019-07-10] MEDS: INSULIN HUMULIN R 100 UNIT/ML 3ML SQ SCH ×4 (00:10→18:48)
[2019-07-10] MEDS ORDERED: SODIUM CHLORIDE 0.9% 1000ML 1,000 ML IV ONE (01:09)
[2019-07-10 01:35] LABS: HEMATOCRIT 30.1 % (42-54)
[2019-07-10] MEDS: METOPROLOL TARTRATE 1 MG/ML 5ML VIAL IV SCH ×4 (03:48→22:45)
[2019-07-10] MEDS: FUROSEMIDE 10 MG/ML 4ML VIAL IV SCH ×2 (03:49→18:30)
[2019-07-10] MEDS: ARTIFICAL TEARS SOL 15 ML OU SCH ×4 (03:50→21:29)
[2019-07-10 06:21] LABS: BASOPHILS % (AUTO) 0.2 % (0.0-5.0); EOSINOPHILS % (AUTO) 0.2 % (0.0-8.0); HEMATOCRIT 28.4 % (42-54); MEAN CORPUSCULAR HEMOGLOBIN 31.7 pg (27.0-33.0); MEAN CORPUSCULAR HGB CONC 32.4 g/dL (32.0-36.0); MEAN CORPUSCULAR VOLUME 97.9 fL (79-99); MONOCYTES % (AUTO) 6.5 % (3.0-13.0); NEUTROPHILS % (AUTO) 86.7 % (40.0-77.0); PLATELET COUNT (AUTO) 494 K/uL (130-400); RED CELL DISTRIBUTION WIDTH 13.4 % (11.0-15.5); WHITE BLOOD COUNT (AUTO) 17.4 K/uL (4.8-10.8)
[2019-07-10 06:39] LABS: ALBUMIN 1.3 g/dL (3.5-5.0); BILIRUBIN,TOTAL 0.7 mg/dL (0.2-1.0); CREATININE 1.3 mg/dL (0.5-1.5); MAGNESIUM 2.1 mg/dL (1.80-2.40); PHOSPHORUS 3.2 mg/dL (2.5-4.9); POTASSIUM 3.2 mmol/L (3.5-5.1); TOTAL PROTEIN, SERUM 5.9 g/dL (6.0-8.3)
[2019-07-10] MEDS: METOCLOPRAMIDE 10 MG/2 ML VIAL IVP SCH ×4 (06:47→23:12)
[2019-07-10] MEDS: CEFEPIME HCL 2 GM VIAL IVP SCH (06:47)
[2019-07-10] MEDS: HYDROCORTISONE SOD SUCCINATE 100 MG/2 ML VIAL IV SCH ×2 (06:48→18:39)
[2019-07-10] MEDS: IPRATROPIUM/ALBUTEROL SULFATE 3 ML SOLUTION IH SCH ×4 (07:29→23:23)
[2019-07-10] MEDS: NEOMY SULF/BACITRAC ZN/POLY OINT 30GM TUBE TP SCH ×3 (09:00→21:29)
[2019-07-10] MEDS: SPIRONOLACTONE 25 MG TAB PO SCH ×2 (09:00→21:28)
[2019-07-10] MEDS: POTASSIUM CHLORIDE 20MEQ/100ML 100 ML IV PRN (09:04)
[2019-07-10] MEDS: FLUCONAZOLE 400 MG/NS 200 ML 200 ML IV SCH (09:06)
[2019-07-10] MEDS: ENOXAPARIN SODIUM 40 MG/0.4 ML SYRINGE SQ SCH (09:09)
[2019-07-10] MEDS ORDERED: LACTATED RINGERS 1000ML 1,000 ML IV SCH (09:30)
[2019-07-10] MEDS ORDERED: FAT EMULSIONS 20% 250ML 250 ML IV SCH (10:00)
[2019-07-10] MEDS: ALBUMIN (HUMAN) 25% 250 ML IV PRN (11:02)
--- NOTE | 2019-07-10 15:19 | NUR ---
CM NOTE Pt with pending SNF referral order on 07/09/2019. Pt now febrile and with labile blood pressure. Discharge planning currently on hold until medically stable. Also anticipate difficulty in placement due to uninsured status.
[2019-07-10] MEDS: CEFEPIME HCL 1 GM VIAL IVP SCH ×2 (18:31→23:09)
[2019-07-10] MEDS ORDERED: [UNRECOGNIZED DRUG - OTHER] IV SCH ×5 (19:00)
[2019-07-10] MEDS ORDERED: SODIUM ACETATE IV SCH ×5 (19:00)
[2019-07-10] MEDS ORDERED: CALCIUM GLUC IV SCH ×5 (19:00)
[2019-07-10] MEDS ORDERED: POTASSIUM CHLORIDE IV SCH ×5 (19:00)
--- NOTE | 2019-07-10 20:15 | NUR ---
ASSESSMENT PT RESTING QUIETLY IN BED, AWAKE AND ALERT. PERRLA, COOPERATIVE,CURRENTLY DENIES ANY PAIN, FAMILY AT BEDSIDE. IV FLUIDS INFUSING WITHOUT DIFFICULTY. ASSESSMENT COMPLETED, SEE FLOW. PARAMETERS REVIEWED ON BEDSIDE MONITOR AND ADJUSTED ACCORDINGLY. CALLBELL REVIEWED AND WITHIN REACH. WHITE BOARD UP-DATED.
--- NOTE | 2019-07-10 23:00 | NUR ---
DRAINAGE FROM ABD 1750 ML DRAINED FROM LEFT UPPER ABD OVER 2H. TOLERATED WITHOUT DIFFICULTY
[2019-07-11] VITALS (42 sets, daily range): BP systolic 79–119; BP diastolic 47–85
[2019-07-11] MEDS: INSULIN HUMULIN R 100 UNIT/ML 3ML SQ SCH ×4 (00:15→17:49)
--- NOTE | 2019-07-11 00:15 | NUR ---
ASSESSMENT PT RESTING QUIETLY IN BED, AWAKE AND ALERT. PERRLA, COOPERATIVE, CURRENTLY DENIES ANY PAIN, FAMILY AT BEDSIDE. IV FLUIDS INFUSING WITHOUT DIFFICULTY. ASSESSMENT COMPLETED, SEE FLOW. CALLBELL WITHIN REACH. WHITE BOARD UP-DATED.
[2019-07-11] MEDS: ARTIFICAL TEARS SOL 15 ML OU SCH ×4 (03:03→22:01)
[2019-07-11] MEDS: METOPROLOL TARTRATE 1 MG/ML 5ML VIAL IV SCH ×2 (03:38→10:10)
[2019-07-11 04:24] LABS: BASOPHILS % (AUTO) 0.1 % (0.0-5.0); HEMATOCRIT 25.2 % (42-54); LYMPHOCYTES % (AUTO) 5.6 % (21.0-51.0); MEAN CORPUSCULAR HEMOGLOBIN 31.9 pg (27.0-33.0); MEAN CORPUSCULAR HGB CONC 31.3 g/dL (32.0-36.0); MEAN CORPUSCULAR VOLUME 101.6 fL (79-99); NEUTROPHILS % (AUTO) 88.4 % (40.0-77.0); PLATELET COUNT (AUTO) 404 K/uL (130-400); RED BLOOD CELL COUNT(AUTO) 2.48 MIL/uL (4.50-6.20); RED CELL DISTRIBUTION WIDTH 13.3 % (11.0-15.5); WHITE BLOOD COUNT (AUTO) 14.9 K/uL (4.8-10.8)
[2019-07-11 04:37] LABS: ALBUMIN 2.4 g/dL (3.5-5.0); CREATININE 1.3 mg/dL (0.5-1.5); PHOSPHORUS 3.3 mg/dL (2.5-4.9)
[2019-07-11 04:44] LABS: POTASSIUM 2.4 mmol/L (3.5-5.1)
[2019-07-11] MEDS: POTASSIUM CHLORIDE 20MEQ/100ML 100 ML IV PRN ×6 (05:22→17:56)
[2019-07-11] MEDS: METOCLOPRAMIDE 10 MG/2 ML VIAL IVP SCH ×3 (05:23→17:54)
[2019-07-11] MEDS: HYDROCORTISONE SOD SUCCINATE 100 MG/2 ML VIAL IV SCH ×2 (05:23→17:53)
[2019-07-11] MEDS: CEFEPIME HCL 1 GM VIAL IVP SCH ×3 (06:05→22:03)
[2019-07-11] MEDS: IPRATROPIUM/ALBUTEROL SULFATE 3 ML SOLUTION IH SCH ×2 (06:51→11:47)
[2019-07-11] MEDS: SPIRONOLACTONE 25 MG TAB PO SCH ×2 (09:00→21:00)
[2019-07-11] MEDS: FLUCONAZOLE 400 MG/NS 200 ML 200 ML IV SCH (11:13)
[2019-07-11] MEDS: NEOMY SULF/BACITRAC ZN/POLY OINT 30GM TUBE TP SCH ×3 (11:14→22:00)
[2019-07-11] MEDS: ENOXAPARIN SODIUM 40 MG/0.4 ML SYRINGE SQ SCH (11:14)
[2019-07-11] MEDS ORDERED: ALBUMIN (HUMAN) 25% 50 ML IV ONE (11:30)
--- NOTE | 2019-07-11 12:53 | NUR ---
NARRATIVE OF EVENTS THIS AM- PT IS LETHARGIC AND DECONDITIONED. SHOWING SIGNS OF CACHEXIA AND MALNOURISHMENT. BP LOW AND TACHYCARDIC, I WILL HOLD DRAINING ABD CATH FOR NOW.DID NOT TOLERATE CPAP- ONLY LASTED 20MINUTES BEFORE HAVING TO BE PLACED BACK ON AC SETTINGS. NG HAVING LARGE AMTS OF DRAINAGE AND DR CORRAL WAS MADE AWARE THIS AM DURING ROUNDS. PT SEEN BY DR PICKETT AND DR DORANTES THIS AM. REPLACING POTASSIUM NOW
[2019-07-11] MEDS: ALBUMIN (HUMAN) 25% 250 ML IV PRN (14:25)
[2019-07-11] MEDS ORDERED: LACTATED RINGERS 1000ML 1,000 ML IV SCH (14:30)
[2019-07-11] MEDS ORDERED: MAGNESIUM 2GM PREMIX 50ML 50 ML IV SCH (15:00)
[2019-07-11] MEDS ORDERED: POTASSIUM PHOS 15 mMOL+NS250ML 250 ML IV PRN (15:00)
[2019-07-11 15:33] LABS: POTASSIUM 2.7 mmol/L (3.5-5.1)
[2019-07-11] MEDS ORDERED: LORAZEPAM 2 MG/ML 1 ML VIAL ONE (18:23)
[2019-07-11] MEDS: IPRATROPIUM 0.5 MG/2.5 ML INH IH SCH ×2 (18:25→22:45)
[2019-07-11] MEDS ORDERED: LORAZEPAM 2 MG/ML 1 ML VIAL IVP ONE (18:30)
[2019-07-11] MEDS ORDERED: KETOROLAC TROMETHAMINE 15MG/ML IV SCH (18:45)
[2019-07-11] MEDS ORDERED: LEVETIRACETAM 1,000 MG in SODIUM CHLORIDE 0.9% 100 ML IV SCH (18:45)
[2019-07-11] MEDS ORDERED: LORAZEPAM 2 MG/ML 1 ML VIAL IVP PRN (18:45)
--- NOTE | 2019-07-11 18:45 | NUR ---
FEVER 102.5 ORALLY-SEIZURES I CALLED DR CORRAL TO INFORM HER OF PATIENT FEVER- ORDERS WERE GIVEN THEN PATIENT HAD WITNESSED SEIZURES/CONVULSIONS . I GAVE PT ATIVAN 2MG IVX1 AND THEN SPOKE TO YEVGENIY MA CRITICAL CARE- HE ALSO GAVE ME ORDERS. PT RESPONDED TO ATIVAN GIVEN-SEIZURES STOPPED. I HAVE PUT COOL MOIST PACKS AND ICE PACKS ON PT. PT AT THIS TIME ALSO ASKED FOR DNR FORMS TO SIGN WHICH SHE HAS DONE AND I INFORMED DR CORRAL WHO GAVE OK FOR DNR. LEVOPHED STARTED ALSO
[2019-07-11] MEDS: NOREPINEPHRINE 4MG/NS 250ML 250 ML IV SCH (18:56)
[2019-07-11] MEDS ORDERED: COMPOUND IV MISC 1 EACH IVSOLN MISC PRN (19:00)
[2019-07-11] MEDS ORDERED: NOREPINEPHRINE BITARTRATE 8 MG in SODIUM CHLORIDE 0.9% 250 ML IV SCH (20:00)
[2019-07-11] MEDS ORDERED: PHARMACY COMMUNICATION MISC SCH (20:00)
[2019-07-11] MEDS ORDERED: CALCIUM GLUC IV SCH ×5 (20:15)
[2019-07-11] MEDS ORDERED: SODIUM ACETATE IV SCH ×5 (20:15)
[2019-07-11] MEDS ORDERED: [UNRECOGNIZED DRUG - OTHER] IV SCH ×5 (20:15)
[2019-07-11] MEDS ORDERED: POTASSIUM CHLORIDE IV SCH ×5 (20:15)
--- NOTE | 2019-07-11 20:58 | NUR ---
treatment not given due to seizures. Addendum: 07/11/19 at 2059 by JAVI NOGUEIRA RT Amended: Links added.
--- NOTE | 2019-07-11 22:00 | NUR ---
UPDATE PT ANIL REQUEST WITHDRAWAL OF LIFE SUPPORT DR. CORRAL NOTIFIED AND UPDATE PT CONDITION. BENCHMARK MIDLEVEL MACHINE MARKER YEVGENIY VILLATORO TEACHER SELECTION SPECIALIST NOTIFIED AND MADE AWARE NO ORDERS RECEIVED TO CALL ATTENDING HOSPITALIST FOR ORDERS. MACHINE MARKER DENISE PRECIADO NOTIFIED MADE AWARE HE CALLED HIS ATTENDING DR. PICKETT. DR. PICKETT SPOKE TO OVER THE PHONE HE IS UNABLE TO COME TO HOSPITAL AND WILL COME TO HOSPITAL IN THE MORNING FOR WITHDRAWAL OF LIFE SUPPORT AT 7AM. THE AGREED TO DR. PICKETT RECOMMENDATION. DENISE AT BEDSIDE SPOKE TO , UPDATE PT CONDITION, NEW ORDERS ENTERED AND CARRIED OUT.
[2019-07-12] VITALS (27 sets, daily range): BP systolic 73–118; BP diastolic 42–72
[2019-07-12] MEDS ORDERED: MORPHINE SULFATE 2 MG/ML 1ML SYG IVP PRN
[2019-07-12] MEDS ORDERED: CALDOLOR 800MG+NS 250ML 250 ML IV PRN (00:30)
[2019-07-12] MEDS ORDERED: CALDOLOR 800MG+NS 250ML 250 ML IV ONE (01:02)
[2019-07-12] MEDS: ARTIFICAL TEARS SOL 15 ML OU SCH ×2 (04:15→10:15)
[2019-07-12] MEDS: INSULIN HUMULIN R 100 UNIT/ML 3ML SQ SCH ×2 (06:00)
[2019-07-12] MEDS: METOCLOPRAMIDE 10 MG/2 ML VIAL IVP SCH ×2 (06:00)
[2019-07-12] MEDS: HYDROCORTISONE SOD SUCCINATE 100 MG/2 ML VIAL IV SCH (06:00)
--- NOTE | 2019-07-12 07:30 | NUR ---
PT CARE Complete head to toe assessment deferred. Pt essentially non-responsive to verbal and tactile stimulation. ST on tele. Remains on ventilator at prescribed settings. No evidence of respiratory distress. VS deferred at request of pt's spouse. Comfort measures to be implemented fully once pt's family members have arrived. Plan of care discussed with pt's spouse. Questions addressed.
--- NOTE | 2019-07-12 07:52 | NUR ---
MD UPDATE at bedside - updated. Will proceed with withdrawal of care as per family's wishes. Pt premedicated under the guidance of MD with morphine 1mg IVP and ativan 1mg IVP prior to withdraw of care.
--- NOTE | 2019-07-12 07:55 | NUR ---
STATUS Pt removed from ventilator by R.T. Levophed gtt off.
[2019-07-12] MEDS ORDERED: LORAZEPAM 2 MG/ML 1 ML VIAL IVP PRN ×2 (08:15)
[2019-07-12] MEDS ORDERED: LEVETIRACETAM 500 MG in SODIUM CHLORIDE 0.9% 100 ML IV SCH (09:00)
[2019-07-12] MEDS: MORPHINE SULFATE 2 MG/ML 1ML SYG IVP PRN ×2 (09:18→11:18)
--- NOTE | 2019-07-12 09:24 | NUR ---
PT CARE PRN meds administered - pt without grimacing but has had onset of tachypnea. Will monitor, f/u on med effect. Family members are at bedside.
--- NOTE | 2019-07-12 11:12 | NUR ---
EMOTIONAL SUPPORT Sw spoke to nurse. Pt on comfort measures. Plan is to wait 24hrs and is pt has not passed, refer to [facility] hospice. Sw visited with and provided emotional support. Discussed [facility] hospice. agreeable to plan. SW to follow and assist as needed
--- NOTE | 2019-07-12 12:19 | NUR ---
REPORT Report given to ERNESTINE Naqvi. Pt to be transferred to room 315. Family members at bedside aware.
--- NOTE | 2019-07-12 12:20 | NUR ---
TRANSFER PATIENT ARRIVED TO ROOM AT APPROX 1220 HOURS. FAMILY PRESENT, GAVE INTRODUCTIONS TO FAMILY. PATIENT RESTING COMFORTABLY.
--- NOTE | 2019-07-12 14:12 | NUR ---
PT NOTED WITH NO RESPIRATIONS, NO PULSE. PUPILS PINPOINT, FIXED. NO SIGNS OF LIFE. FAMILY AT SIDE. NOTIFIED RIG OPERATOR TO PRONOUNCE AND PRIMARY MD DR PICKETT TO SIGN CERTIFICATE. NOTIFIED TOSA.
--- NOTE | 2019-07-12 14:12 | NUR ---
PRONOUNCEMENT CALLED TO ROOM BY CN, PT IS DNR FAMILY AT BEDSIDE. PT IS UNRESPONSIVE, NO HEART TONES, NO RESPIRATIONS. PUPILS FIXED AND NON-REACTIVE TO LIGHT. PT PRONOUNCED AT THIS TIME WITH CN AND PRIMARY NURSE IN ATTENDANCE
--- NOTE | 2019-07-12 14:20 | NUR ---
NOTIFIED BY FAMILY NOTIFIED BY FEMALE FAMILY MEMBER THAT PATIENT WAS NOT BREATHING AND SHE THOUGHT HE HAD PASSED. UNABLE TO VISUALLY OBSERVE CHEST RISE OR FALL, NO PULSE DETECTED AT RADIAL AND CAROTID. NO HEART SOUNDS DETECTED. NOTIFIED CHARGE NURSE LUKE DUNCAN RN OF INFORMATION. LUKE ARRIVED AND CONDUCTED ASSESSMENT AND INDICATED NO BREATH SOUNDS HEARD OR HEART BEAT DETECTED. DISPATCHER BUS AND TROLLEY DONAVON WAS NOTIFIED.
--- NOTE | 2019-07-12 15:54 | NUR ---
EMOTIONAL SUPPORT Sw met with family at bedside and provided emotional support. 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
--- NOTE | 2019-07-12 16:25 | NUR ---
RD FOLLOW UP Pt with Comfort Measures in place, withdrawal of care. Please notify RD for desirable nutrition intervention. Pt with Generalized 3+ edema. Pt LBM 07/11/19. Pt monitored labs: K 2.7, BG 129, Mg 2.50, Na 163, CO2 49, BUN 50, Alb 2.4, AST 92, ALT 105. Addendum: 07/12/19 at [address] Amended: Links added.
== END 2019-07-12 14:12 | disposition expired | DRG 3 ==
LOC: EDH 15:19 → EDHIP 15:20 → 3CH 22:21 → 3BH 06-10 22:15 → 3CH 06-10 22:20 → 2CH 06-19 14:34 → 3CH 07-12 12:52
PROVIDERS: ADMIT Family Medicine; ATTEND Family Medicine
PROC: 0D9670Z Drainage of Stomach with Drainage Device, Via Natural or Artificial Opening (ICD-10-PCS; 2019-06-13)
PROC: 0DBN8ZX Excision of Sigmoid Colon, Via Natural or Artificial Opening Endoscopic, Diagnostic (ICD-10-PCS; 2019-06-15)
PROC: 0D7H8ZZ Dilation of Cecum, Via Natural or Artificial Opening Endoscopic (ICD-10-PCS; 2019-06-15)
PROC: 0DTH0ZZ Resection of Cecum, Open Approach (ICD-10-PCS; 2019-06-19)
PROC: 5A1955Z Respiratory Ventilation, Greater than 96 Consecutive Hours (ICD-10-PCS; 2019-06-19)
PROC: 30233K1 Transfusion of Nonautologous Frozen Plasma into Peripheral Vein, Percutaneous Approach (ICD-10-PCS; 2019-06-19)
PROC: 0BH17EZ Insertion of Endotracheal Airway into Trachea, Via Natural or Artificial Opening (ICD-10-PCS; 2019-06-19)
PROC: 0DBB4ZZ Excision of Ileum, Percutaneous Endoscopic Approach (ICD-10-PCS; principal; 2019-06-19 09:00)
PROC: 0DTF0ZZ Resection of Right Large Intestine, Open Approach (ICD-10-PCS; 2019-06-29)
PROC: 0D1M0Z4 Bypass Descending Colon to Cutaneous, Open Approach (ICD-10-PCS; 2019-06-29)
PROC: 0W9G3ZZ Drainage of Peritoneal Cavity, Percutaneous Approach (ICD-10-PCS; 2019-07-05)
PROC: 0B110F4 Bypass Trachea to Cutaneous with Tracheostomy Device, Open Approach (ICD-10-PCS; 2019-07-08)
PROC: 5A1945Z Respiratory Ventilation, 24-96 Consecutive Hours (ICD-10-PCS; 2019-07-08)
DX: K56.699 Other intestinal obstruction unspecified as to partial versus complete obstruction (principal); E43 Unspecified severe protein-calorie malnutrition; J18.9 Pneumonia, unspecified organism; K35.32 Acute appendicitis with perforation, localized peritonitis, and gangrene, without abscess; K63.1 Perforation of intestine (nontraumatic); N17.0 Acute kidney failure with tubular necrosis; J96.00 Acute respiratory failure, unspecified whether with hypoxia or hypercapnia; E87.1 Hypo-osmolality and hyponatremia; E87.0 Hyperosmolality and hypernatremia; E87.3 Alkalosis; J98.11 Atelectasis; L03.90 Cellulitis, unspecified; T81.41XA Infection following a procedure, superficial incisional surgical site, initial encounter; Z99.11 Dependence on respirator [ventilator] status; K59.39 Other megacolon; K56.2 Volvulus; K80.20 Calculus of gallbladder without cholecystitis without obstruction; D64.9 Anemia, unspecified; E87.6 Hypokalemia; M19.90 Unspecified osteoarthritis, unspecified site; Z68.22 Body mass index [BMI] 22.0-22.9, adult; D69.59 Other secondary thrombocytopenia; D70.9 Neutropenia, unspecified; E66.01 Morbid (severe) obesity due to excess calories; E83.42 Hypomagnesemia; E86.9 Volume depletion, unspecified; F17.200 Nicotine dependence, unspecified, uncomplicated; H54.7 Unspecified visual loss; I25.10 Atherosclerotic heart disease of native coronary artery without angina pectoris; I10 Essential (primary) hypertension; K70.31 Alcoholic cirrhosis of liver with ascites; D50.9 Iron deficiency anemia, unspecified; K64.1 Second degree hemorrhoids; K63.89 Other specified diseases of intestine; M47.815 Spondylosis without myelopathy or radiculopathy, thoracolumbar region; T36.0X5A Adverse effect of penicillins, initial encounter; Z51.5 Encounter for palliative care; Y83.8 Other surgical procedures as the cause of abnormal reaction of the patient, or of later complication, without mention of misadventure at the time of the procedure; I25.2 Old myocardial infarction; Z79.52 Long term (current) use of systemic steroids; Z86.73 Personal history of transient ischemic attack (TIA), and cerebral infarction without residual deficits; Z83.3 Family history of diabetes mellitus; Y92.89 Other specified places as the place of occurrence of the external cause
CPT/HCPCS: 10030; 36415; 36600; 45380; 45393; 49083; 71045; 74018; 74021; 74176; 76942; 80048; 80053; 80061; 80069; 80202; 82533; 82803; 82945; 82948; 83540; 83550; 83605; 83615; 83690; 83735; 84100; 84132; 84145; 84157; 84484; 85014; 85018; 85025; 85027; 85060; 85610; 85730; 86038; 86215; 86235; 86850; 86900; 86901; 86922; 86927; 87040; 87070; 87071; 87076; 87077; 87088; 87186; 87205; 88305; 88307; 89051; 93005; 93306; 93970; 94002; 94003; 94640; 94664; 94667; 94668; 99291; A4344; A5073; C1751; C1894; G0378; J0330; J0360; J0610; J0690; J0692; J1100; J1120; J1170; J1450; J1650; J1720; J1741; J1815; J1885; J1940; J1953; J1956; J2001; J2060; J2175; J2185; J2250; J2270; J2405; J2543; J2704; J2710; J2765; J2930; J3010; J3370; J3475; J3480; J3490; J7030; J7040; J7070; J7120; J7608; P9017; P9045; P9046; P9047; Q9963